=== PATIENT | male | born 1950 | race Caucasian/White ===

== ENCOUNTER → 2017-03-09 | Outpatient (CLI) | payer OTHER ==
[~2017-03-09] MED LIST: ACT30 PO; ASPI81TA28 PO; GLIM4TAB2 PO; GLIP-197 PO; METF500T5 PO; PRAV10TA39 PO; SULF-302 PO
[2017-03-09 13:15] LABS: HEMOGLOBIN A1C 7.1 % (4.5-5.6)
== END | disposition home or self-care (01) ==
LOC: C.LABPBG 09:58
PROVIDERS: ATTEND Physician Assistant
DX: E11.9 Type 2 diabetes mellitus without complications (principal)

== ENCOUNTER → 2017-06-09 | Outpatient (CLI) | payer OTHER ==
[2017-06-09 17:16] LABS: BLOOD UREA NITROGEN 21 mg/dl (7-18); CALCIUM 8.5 mg/dl (8.5-10.1); CARBON DIOXIDE 26 mmol/L (21-32); CREATININE 1.04 mg/dl (0.60-1.40); GLUCOSE 263 mg/dl (70-99); POTASSIUM 4.4 mmol/L (3.5-5.1); SODIUM 136 mmol/L (136-145)
[2017-06-09 17:25] LABS: CREATININE RANDOM URINE 57.1 mg/dl
[2017-06-10 06:56] LABS: HEMOGLOBIN A1C 8.1 % (4.5-5.6)
== END | disposition home or self-care (01) ==
LOC: C.LABPBG 11:50
PROVIDERS: ATTEND Physician Assistant
DX: E11.9 Type 2 diabetes mellitus without complications (principal)

== ENCOUNTER 2022-04-29 11:27 | Inpatient (IN) ==
--- NOTE | 2022-04-29 12:06 | Emergency Department Note ---
Impression & Plan Syncope ED Provider Note ED Provider Note NAME: KESHA DOE AGE:71 SEX: Male : 1950 ARRIVES VIA: EMS INFORMANT: Patient ED PROVIDER(s): Rachel Prieto DO CHIEF COMPLAINT: Syncope HPI: This is a 71-year-old male who states he was sitting in his car waiting in line to receive food from the [employer] bank working on a word puzzle and the next thing he knew he was in the back of an ambulance. Patient states he felt well in his usual state of health when he got up this morning. Denies any prodromal headaches, chest pain, abdominal pain, or dizziness. Patient states he felt well while seated in the car and felt well on arrival here via ambulance. Patient denies any recent illness, change in bowels or change in urine. He states he is taking his medications as prescribed. He denies any history of heart problems or prior episodes of syncope. He denies any recent sense of palpitations. PAST MEDICAL HISTORY:See Below PAST SURGICAL HISTORY:See Below FAMILY HISTORY:See Below SOCIAL HISTORY:See Below HOME MEDICATIONS:See Below ALLERGIES:See Below VITALS:See Below PHYSICAL EXAMINATION: GENERAL: alert, well appearing, well nourished, no distress, non-toxic EYE EXAM: normal conjunctiva, PERRL and EOM's grossly intact OROPHARYNX: no exudate, no erythema, lips, buccal mucosa, and tongue normal and mucous membranes are moist NECK: supple, no nuchal rigidity, no adenopathy, non-tender LUNGS: Clear to auscultation. Normal chest wall mechanics, no w/r/r HEART: no murmurs, S1 normal and S2 normal ABDOMEN: abdomen soft, non-tender, normo-active bowel sounds, no masses, no rebound or guarding. BACK: Back is symmetrical on inspection and there is no deformity, no midline tenderness, no CVA tenderness. SKIN: no rashes, petechiae, orbruising UPPER EXTREMITIES: upper extremities are grossly normal. FROM, nml pulses b/l. LOWER EXTREMITIES: No pitting edema. FROM, nml pulses b/l. NEURO EXAM: Normal sensorium, cranial nerves II-XII grossly intact, normal speech, no facial droop,nogross weakness of arms, no gross weakness of legs. Gross sensation intact bilaterally. No ataxia. Normal finger-nose, negative pronator drift. Vital Signs: reviewed and remarkable Differential Diagnosis: Differential diagnosis includes etiologies such as vasovagal event, infection, hypoglycemia, electrolyte abnormalities, cardiac sources, intracerebral event, toxicologic, neurologic, as well as others were entertained. MEDICAL DECISION MAKING: This is a 71-year-old male who presents following a syncopal event earlier this morning. Patient with no prodromal symptoms and no recollection of the event until he awoke in the ambulance. He was afebrile and vital signs were stable. Patient had a nonfocal neuro exam at bedside, and had no complaints of symptoms. IV established, labs drawn and sent, EKG performed interpreted by me at bedside, chest x-ray performed and interpreted by me at bedside, patient sent for CT imaging after being placed on telemetry. Patient did have a bowel movement here which was sent for culture as a precaution as upon additional questioning he admitted to intermittent diarrhea over the last 2 weeks. Patient had a soft and nontender abdominal exam at bedside. No ectopy or dysrhythmia noted on telemetry. Patient's labs reassuring with exception of hypomagnesemia. CT imaging reassuring. IV magnesium was added for repletion in addition to IV fluids. Given unclear etiology and severity of syncopal event today as well as patient's risk factors and lack of follow-up, case was discussed with hospitalist for additional evaluation and management. Patient states he does not routinely follow with cardiology and has not had any cardiac evaluation in several years. Leukocytosis was noted although I suspect this is stress demargination versus related to his intermittent diarrhea. Consultation(s): 1425: Case discussed with Dr. Ambrocio, [facility] hospitalist service. ER Treatment Provided: See below 1205: Nursing staff now reports upon arrival of family at the bedside, patient admits to having 2 weeks of intermittent diarrhea. Diagnostics Interpreted By Me: -ECG: Normal sinus at 93, normal axis, normal intervals, nonspecific ST/T wave changes, mildly apparent baseline -Cardiac Monitoring: An order was placed for continuous cardiac monitoring. The monitor shows a rate of 92 with normal sinus rhythm. -Laboratory studies: As stated above and show below. -Imaging studies: X-ray Chest: A single view study of the chest was reviewed and was negative for cardiomegaly, focal infiltrate, effusion, pulmonary edema, or wide mediastinum. Triage Nursing Note Reviewed Prior/Outside Records Reviewed -external records reviewed Procedures: [] Critical Care: [] Past Med/Surg History Medical History (Updated 04/29/22 @ 16:03 by Dania Ambrocio MD) CAD (coronary artery disease) Diabetes mellitus Diabetic peripheral neuropathy Hyperlipidemia Hypertension PAD (peripheral artery disease) Social History Smoking Status: Former smoker Tobacco Type: Cigarettes Second Hand Exposure: No; Do You Dip or Chew Tobacco: Yes; Tobacco Cessation Education Requested by Patient: No Hx Alcohol Use: No Hx Substance Use: No Preferred Language: [place]i Oleomargarine Maker Required: No Beliefs That Will Affect Care: None Current Living Situation: Family Other Information That Helps Us Care for You: No Feels Safe at Home: Yes Safety Concerns: Feels Safe At This Time Assistive Devices: None Allergies Allergies Allergy/AdvReac Type Severity Reaction Status Date / Time No Known Allergies Allergy Verified 04/29/22 14:36 Home Meds Home Medications Medication Instructions Recorded Confirmed mecobalamin (vitamin B12) 1,000 1,000 mcg sublingual DAILY 09/06/18 04/29/22 mcg disintegrating tablet,sublingual cholecalciferol (vitamin D3) 125 10,000 units PO DAILY #30 tabs 09/21/18 04/29/22 mcg (5,000 unit) tablet pravastatin 20 mg tablet 20 mg PO DAILY #90 tabs 09/21/18 04/29/22 metformin 500 mg tablet,extended 1,000 mg PO BID 03/19/19 04/29/22 release 24hr omega-3 acid ethyl esters 1 gram 1 cap PO BID 03/19/19 04/29/22 capsule aspirin 81 mg chewable tablet 81 mg PO DAILY 04/29/22 04/29/22 insulin lispro 100 unit/mL 18 unit subcut BID 04/29/22 04/29/22 subcutaneous pen (Humalog KwikPen (U-100) Insulin) insulin lispro 100 unit/mL 20 unit subcut QAM 04/29/22 04/29/22 subcutaneous pen (Humalog KwikPen (U-100) Insulin) lisinopril 20 1 tab PO DAILY 04/29/22 04/29/22 mg-hydrochlorothiazide 12.5 mg tablet vitamin E 268 mg (400 unit) capsule 268 mg PO DAILY 04/29/22 04/29/22 Previous Rx's Medication Instructions Recorded Matheus Shen U-300 Insulin 300 55 unit (0.1833 mL) subcut DAILY 11/16/21 unit/mL (1.5 mL) subcutaneous pen 90 days #18 mL (insulin glargine U-300 conc) semaglutide 2 mg/dose (8 mg/3 mL) 2 mg (0.75 mL) subcut WK 30 days 11/30/21 subcutaneous pen injector #3 mL Results & Data (ED) Vital Signs Vital Signs - 24 hr 04/29/22 11:35 04/29/22 11:35 04/29/22 12:25 Temperature 36.5 C Temperature Source Oral Pulse Rate 95 H Pulse Rate from SpO2 Sensor Respiratory Rate 15 15 Blood Pressure 124/56 L Blood Pressure Mean 78 Pulse Oximetry 95 95 Oxygen Delivery Method Room Air Room Air Sepsis Recent Fever Within 48 Hours No Sepsis New/Unexplained Change in Mental Status N/A Sepsis Action Taken by Nursing No Action Required 04/29/22 11:37 04/29/22 11:38 04/29/22 11:38 Temperature Temperature Source Pulse Rate 95 H 124 H Pulse Rate from SpO2 Sensor Respiratory Rate 15 16 Blood Pressure 111/60 Blood Pressure Mean 77 Pulse Oximetry Oxygen Delivery Method Sepsis Recent Fever Within 48 Hours Sepsis New/Unexplained Change in Mental Status Sepsis Action Taken by Nursing 04/29/22 11:39 04/29/22 11:39 04/29/22 11:55 Temperature Temperature Source Pulse Rate 93 H 118 H Pulse Rate from SpO2 Sensor Respiratory Rate 14 17 Blood Pressure 124/56 L Blood Pressure Mean 78 Pulse Oximetry Oxygen Delivery Method Sepsis Recent Fever Within 48 Hours Sepsis New/Unexplained Change in Mental Status Sepsis Action Taken by Nursing 04/29/22 12:00 04/29/22 12:23 04/29/22 12:24 Temperature Temperature Source Pulse Rate 100 H 94 H 96 H Pulse Rate from SpO2 Sensor 102 H Respiratory Rate 15 16 15 Blood Pressure Blood Pressure Mean Pulse Oximetry 98 Oxygen Delivery Method Sepsis Recent Fever Within 48 Hours Sepsis New/Unexplained Change in Mental Status Sepsis Action Taken by Nursing 04/29/22 12:24 04/29/22 12:30 04/29/22 12:30 Temperature Temperature Source Pulse Rate 94 H Pulse Rate from SpO2 Sensor Respiratory Rate 16 Blood Pressure 107/59 L 100/61 Blood Pressure Mean 75 74 Pulse Oximetry Oxygen Delivery Method Sepsis Recent Fever Within 48 Hours Sepsis New/Unexplained Change in Mental Status Sepsis Action Taken by Nursing 04/29/22 12:54 04/29/22 13:00 04/29/22 13:00 Temperature Temperature Source Pulse Rate 109 H 100 H Pulse Rate from SpO2 Sensor 120 H 94 H Respiratory Rate 15 16 Blood Pressure 125/43 L Blood Pressure Mean 70 Pulse Oximetry 97 94 Oxygen Delivery Method Sepsis Recent Fever Within 48 Hours Sepsis New/Unexplained Change in Mental Status Sepsis Action Taken by Nursing Laboratory Data 04/29/22 11:37 04/29/22 11:37 Lab Results 04/29/22 04/29/22 04/29/22 Range/Units 11:37 11:37 11:37 WBC 17.10 H (4.8-10.8) K/ul RBC 4.69 L (4.70-6.10) M/uL Hgb 14.9 (14.0-18.0) g/dl Hct 42.7 (42.0-52.0) % MCV 91.0 (80.0-100.0) fL MCH 31.8 (25.0-34.0) pg MCHC 34.9 (32.0-36.0) g/dL RDW Std Deviation 43.8 (36.4-46.3) fL RDW Coeff of Mikayla 13.2 (11.5-14.5) % Plt Count 284 (130-400) K/uL MPV 11.2 (9.4-12.4) fL Immature Gran % (Auto) 1.0 % Neut % (Auto) 75.1 % Lymph % (Auto) 11.2 % [place] % (Auto) 5.2 % Eos % (Auto) 7.1 % Baso % (Auto) 0.4 % Neut # (Auto) 12.85 H (1.40-6.50) K/uL Lymph # (Auto) 1.92 (1.2-3.4) K/uL [place] # (Auto) 0.89 H (0.11-0.59) K/uL Eos # (Auto) 1.21 H (0-0.50) K/uL Baso # (Auto) 0.06 (0-0.2) K/uL Immature Gran # (Auto) 0.17 (0.01-0.20) K/uL Sodium 139 (136-145) mmol/L Potassium 4.1 (3.5-5.1) mmol/L Chloride 106 (98-107) mmol/L Carbon Dioxide 21 (21-32) mmol/L Anion Gap 12 H (3-11) BUN 25 H (6-23) mg/dl Creatinine 1.12 (0.6-1.4) mg/dl Est Cr Clr Drug Dosing Not Reportable Est GFR ( Amer) 76.7 ml/min Est GFR (Non-Af Amer) 66.2 ml/min BUN/Creatinine Ratio 22.3 H (10-20) Glucose 71 (70-99(Fasting)) mg/dl Calcium 8.8 (8.5-10.1) mg/dl Magnesium 1.4 L (1.7-2.4) mg/dl Total Bilirubin 0.3 (0.2-1.0) mg/dl AST 15 (13-39) U/L ALT 12 (7-52) U/L Alkaline Phosphatase 36 (34-104) U/L Troponin I High Sens 21.4 H (0-20) pg/ml Total Protein 6.1 (6.0-8.3) gm/dl Albumin 3.4 (3.4-5.0) gm/dl Globulin 2.7 (2.5-4.0) gm/dl Albumin/Globulin Ratio 1.3 (0.9-2) TSH 4.503 H (0.300-4.500) uIu/ml Free T4 0.98 (0.61-1.60) ng/dl Urine Color Urine Appearance (Clear) Urine pH (4.5-7.5) Ur Specific [place] (1.000-1.030) Urine Protein (Negative) Urine Glucose (UA) (Negative) Urine Ketones (Negative) Urine Blood (Negative) Urine Nitrite (Negative) Urine Bilirubin (Negative) Urine Urobilinogen (Negative) Ur Leukocyte Esterase (Negative) Stl C. cayetanensis PCR (NotDetected) Stool Rotavirus A PCR (NotDetected) Stl Adenov F 40/41 PCR (NotDetected) Stool Astrovirus (PCR) (NotDetected) Stool Campylobacter PCR (NotDetected) Stool Cryptosporidium PCR (NotDetected) Stl E.coli Shiga Tox PCR (NotDetected) Stl Enterotoxigenic E PCR (NotDetected) Stool EPEC (PCR) (NotDetected) Stool EAEC (PCR) (NotDetected) Stl E. histolytica PCR (NotDetected) Stool Giardia Lamblia PCR (NotDetected) Stool Salmonella PCR (NotDetected) Stool Sapovirus (PCR) (NotDetected) Stl P. shigelloides PCR (NotDetected) Stl Shigella/EIEC PCR (NotDetected) St Y.enterocolitica PCR (NotDetected) Stool Vibrio (PCR) (NotDetected) Stl Vibrio cholerae PCR (NotDetected) Stl Norovirus GI/GII PCR (NotDetected) Urine Opiates Screen (Neg) Ur Methadone, Qual (Neg) Urine Barbiturates (Neg) Ur Phencyclidine (PCP) (Neg) U Amphetamin/Meth Scrn (Neg) MDMA (Ecstasy) Screen (Neg) U Benzodiazepines Scrn (Neg) Ur Cocaine Metabolite (Neg) U Marijuana (THC) Screen (Neg) SARS-CoV-2 (PCR) (Negative) Influenza Type A (PCR) (Neg) Influenza Type B (PCR) (Neg) RSV (RT-PCR) (Neg) 04/29/22 04/29/22 04/29/22 Range/Units 12:00 12:00 12:05 WBC (4.8-10.8) K/ul RBC (4.70-6.10) M/uL Hgb (14.0-18.0) g/dl Hct (42.0-52.0) % MCV (80.0-100.0) fL MCH (25.0-34.0) pg MCHC (32.0-36.0) g/dL RDW Std Deviation (36.4-46.3) fL RDW Coeff of Mikayla (11.5-14.5) % Plt Count (130-400) K/uL MPV (9.4-12.4) fL Immature Gran % (Auto) % Neut % (Auto) % Lymph % (Auto) % [place] % (Auto) % Eos % (Auto) % Baso % (Auto) % Neut # (Auto) (1.40-6.50) K/uL Lymph # (Auto) (1.2-3.4) K/uL [place] # (Auto) (0.11-0.59) K/uL Eos # (Auto) (0-0.50) K/uL Baso # (Auto) (0-0.2) K/uL Immature Gran # (Auto) (0.01-0.20) K/uL Sodium (136-145) mmol/L Potassium (3.5-5.1) mmol/L Chloride (98-107) mmol/L Carbon Dioxide (21-32) mmol/L Anion Gap (3-11) BUN (6-23) mg/dl Creatinine (0.6-1.4) mg/dl Est Cr Clr Drug Dosing Est GFR ( Amer) ml/min Est GFR (Non-Af Amer) ml/min BUN/Creatinine Ratio (10-20) Glucose (70-99(Fasting)) mg/dl Calcium (8.5-10.1) mg/dl Magnesium (1.7-2.4) mg/dl Total Bilirubin (0.2-1.0) mg/dl AST (13-39) U/L ALT (7-52) U/L Alkaline Phosphatase (34-104) U/L Troponin I High Sens (0-20) pg/ml Total Protein (6.0-8.3) gm/dl Albumin (3.4-5.0) gm/dl Globulin (2.5-4.0) gm/dl Albumin/Globulin Ratio (0.9-2) TSH (0.300-4.500) uIu/ml Free T4 (0.61-1.60) ng/dl Urine Color Yellow Urine Appearance Clear (Clear) Urine pH 5.0 (4.5-7.5) Ur Specific [place] 1.020 (1.000-1.030) Urine Protein Negative (Negative) Urine Glucose (UA) Negative (Negative) Urine Ketones Negative (Negative) Urine Blood Negative (Negative) Urine Nitrite Negative (Negative) Urine Bilirubin Negative (Negative) Urine Urobilinogen Negative (Negative) Ur Leukocyte Esterase Negative (Negative) Stl C. cayetanensis PCR Not Detected (NotDetected) Stool Rotavirus A PCR Not Detected (NotDetected) Stl Adenov F 40/41 PCR Not Detected (NotDetected) Stool Astrovirus (PCR) Not Detected (NotDetected) Stool Campylobacter PCR Not Detected (NotDetected) Stool Cryptosporidium PCR Not Detected (NotDetected) Stl E.coli Shiga Tox PCR Not Detected (NotDetected) Stl Enterotoxigenic E PCR Not Detected (NotDetected) Stool EPEC (PCR) Not Detected (NotDetected) Stool EAEC (PCR) Not Detected (NotDetected) Stl E. histolytica PCR Not Detected (NotDetected) Stool Giardia Lamblia PCR Not Detected (NotDetected) Stool Salmonella PCR Not Detected (NotDetected) Stool Sapovirus (PCR) Not Detected (NotDetected) Stl P. shigelloides PCR Not Detected (NotDetected) Stl Shigella/EIEC PCR Not Detected (NotDetected) St Y.enterocolitica PCR Not Detected (NotDetected) Stool Vibrio (PCR) Not Detected (NotDetected) Stl Vibrio cholerae PCR Not Detected (NotDetected) Stl Norovirus GI/GII PCR Not Detected (NotDetected) Urine Opiates Screen Neg (Neg) Ur Methadone, Qual Neg (Neg) Urine Barbiturates Neg (Neg) Ur Phencyclidine (PCP) Neg (Neg) U Amphetamin/Meth Scrn Neg (Neg) MDMA (Ecstasy) Screen Neg (Neg) U Benzodiazepines Scrn Neg (Neg) Ur Cocaine Metabolite Neg (Neg) U Marijuana (THC) Screen Neg (Neg) SARS-CoV-2 (PCR) (Negative) Influenza Type A (PCR) (Neg) Influenza Type B (PCR) (Neg) RSV (RT-PCR) (Neg) 04/29/22 Range/Units 14:27 WBC (4.8-10.8) K/ul RBC (4.70-6.10) M/uL Hgb (14.0-18.0) g/dl Hct (42.0-52.0) % MCV (80.0-100.0) fL MCH (25.0-34.0) pg MCHC (32.0-36.0) g/dL RDW Std Deviation (36.4-46.3) fL RDW Coeff of Mikayla (11.5-14.5) % Plt Count (130-400) K/uL MPV (9.4-12.4) fL Immature Gran % (Auto) % Neut % (Auto) % Lymph % (Auto) % [place] % (Auto) % Eos % (Auto) % Baso % (Auto) % Neut # (Auto) (1.40-6.50) K/uL Lymph # (Auto) (1.2-3.4) K/uL [place] # (Auto) (0.11-0.59) K/uL Eos # (Auto) (0-0.50) K/uL Baso # (Auto) (0-0.2) K/uL Immature Gran # (Auto) (0.01-0.20) K/uL Sodium (136-145) mmol/L Potassium (3.5-5.1) mmol/L Chloride (98-107) mmol/L Carbon Dioxide (21-32) mmol/L Anion Gap (3-11) BUN (6-23) mg/dl Creatinine (0.6-1.4) mg/dl Est Cr Clr Drug Dosing Est GFR ( Amer) ml/min Est GFR (Non-Af Amer) ml/min BUN/Creatinine Ratio (10-20) Glucose (70-99(Fasting)) mg/dl Calcium (8.5-10.1) mg/dl Magnesium (1.7-2.4) mg/dl Total Bilirubin (0.2-1.0) mg/dl AST (13-39) U/L ALT (7-52) U/L Alkaline Phosphatase (34-104) U/L Troponin I High Sens (0-20) pg/ml Total Protein (6.0-8.3) gm/dl Albumin (3.4-5.0) gm/dl Globulin (2.5-4.0) gm/dl Albumin/Globulin Ratio (0.9-2) TSH (0.300-4.500) uIu/ml Free T4 (0.61-1.60) ng/dl Urine Color Urine Appearance (Clear) Urine pH (4.5-7.5) Ur Specific [place] (1.000-1.030) Urine Protein (Negative) Urine Glucose (UA) (Negative) Urine Ketones (Negative) Urine Blood (Negative) Urine Nitrite (Negative) Urine Bilirubin (Negative) Urine Urobilinogen (Negative) Ur Leukocyte Esterase (Negative) Stl C. cayetanensis PCR (NotDetected) Stool Rotavirus A PCR (NotDetected) Stl Adenov F 40/41 PCR (NotDetected) Stool Astrovirus (PCR) (NotDetected) Stool Campylobacter PCR (NotDetected) Stool Cryptosporidium PCR (NotDetected) Stl E.coli Shiga Tox PCR (NotDetected) Stl Enterotoxigenic E PCR (NotDetected) Stool EPEC (PCR) (NotDetected) Stool EAEC (PCR) (NotDetected) Stl E. histolytica PCR (NotDetected) Stool Giardia Lamblia PCR (NotDetected) Stool Salmonella PCR (NotDetected) Stool Sapovirus (PCR) (NotDetected) Stl P. shigelloides PCR (NotDetected) Stl Shigella/EIEC PCR (NotDetected) St Y.enterocolitica PCR (NotDetected) Stool Vibrio (PCR) (NotDetected) Stl Vibrio cholerae PCR (NotDetected) Stl Norovirus GI/GII PCR (NotDetected) Urine Opiates Screen (Neg) Ur Methadone, Qual (Neg) Urine Barbiturates (Neg) Ur Phencyclidine (PCP) (Neg) U Amphetamin/Meth Scrn (Neg) MDMA (Ecstasy) Screen (Neg) U Benzodiazepines Scrn (Neg) Ur Cocaine Metabolite (Neg) U Marijuana (THC) Screen (Neg) SARS-CoV-2 (PCR) NEGATIVE (Negative) Influenza Type A (PCR) Negative (Neg) Influenza Type B (PCR) Negative (Neg) RSV (RT-PCR) Negative (Neg) Administered Medications Sodium Chloride (Nss 1000ml) 1,000 mls @ 125 mls/hr IV .Q8H JESSENIA Stop: 05/29/22 11:59 Last Admin: 04/29/22 18:20 Dose: 125 mls/hr Documented By: Infusion: 04/29/22 18:20 Dose: 125 mls/hr Documented By: Admin: 04/29/22 12:09 Dose: 125 mls/hr Documented By: PAIGE Insulin Aspart (Insulin Aspart Per Unit) 0 units SC ACHS JESSENIA Stop: 05/29/22 16:47 Last Admin: 04/29/22 18:19 Dose: 7 units Documented By: KALEE Co-signed By: LEO Miscellaneous (Carbohydrates For Hypoglycemia ) 15 - 30 gm PO UD PRN PRN Reason: Hypoglycemia Protocol Stop: 05/29/22 16:47 Last Admin: 04/29/22 16:52 Dose: 15 gm Documented By: KALEE Discontinued Medications Magnesium Sulfate/Dextrose (Magnesium Sulfate / D5w) 1 gm in 100 mls @ 100 mls/hr IV Q1H JESSENIA Stop: 04/29/22 14:51 Last Infusion: 04/29/22 15:59 Dose: 0 mls/hr Documented By: Admin: 04/29/22 14:38 Dose: 100 mls/hr Documented By: Infusion: 04/29/22 13:59 Dose: 0 mls/hr Documented By: Admin: 04/29/22 12:57 Dose: 100 mls/hr Documented By: PAIGE Ioversol (Optiray 320 500ml) 112 ml IV ONCE ONE Stop: 04/29/22 12:57 Last Admin: 04/29/22 12:57 Dose: 112 ml Documented By: LINDA Imaging Data Radiologist's Impression: Chest X-Ray 04/29/22 11:42 XR chest 1V portable CLINICAL HISTORY: Syncope. COMPARISON STUDY: No previous studies for comparison. FINDINGS: There are several old healed left rib fractures. Lung volumes are normal. Lungs are clear. There is no pneumothorax or pleural effusion. Mild cardiomegaly. Mediastinal contours are normal. There is no evidence for pulmonary edema. IMPRESSION: No acute cardiopulmonary findings. ACT 112: Negative or not required by law. Electronically signed by: Tai Schmid M.D. 04/29/2022 1:[address] 04/29/22 12:00 HEAD CTA HISTORY: syncope TECHNIQUE: Multiaxial CT images of the head were performed both before and after the intravenous administration of contrast to evaluate the major cerebral vessels. Maximum intensity projection images were also obtained. A dose lowering technique was utilized adhering to the principles of ALARA. COMPARISON: None. FINDINGS: There is no mass, hematoma, midline shift, or acute infarct. Visualized intracranial internal carotid arteries, distal right vertebral artery, and basilar artery are widely patent. There is no significant stenosis, occlusion, or aneurysm seen within the bilateral ACAs, MCAs, or supervisory historian. The major dural venous sinuses are patent. The distal left vertebral artery is not well visualized and may be severely hypoplastic. IMPRESSION: 1. No acute intracranial abnormality. 2. No significant stenosis, occlusion, or aneurysm within the [place]. 3. The distal left vertebral artery is not well visualized and may be severely hypoplastic. ACT 112: Negative or not required by law. Electronically signed by: Cayden Marks M.D. 04/29/2022 1:19 PM Head CTA 04/29/22 12:00 HEAD CTA HISTORY: syncope TECHNIQUE: Multiaxial CT images of the head were performed both before and after the intravenous administration of contrast to evaluate the major cerebral vessels. Maximum intensity projection images were also obtained. A dose lowering technique was utilized adhering to the principles of ALARA. COMPARISON: None. FINDINGS: There is no mass, hematoma, midline shift, or acute infarct. Visualized intracranial internal carotid arteries, distal right vertebral artery, and basilar artery are widely patent. There is no significant stenosis, occlusion, or aneurysm seen within the bilateral ACAs, MCAs, or supervisory historian. The major dural venous sinuses are patent. The distal left vertebral artery is not well visualized and may be severely hypoplastic. IMPRESSION: 1. No acute intracranial abnormality. 2. No significant stenosis, occlusion, or aneurysm within the [place]. 3. The distal left vertebral artery is not well visualized and may be severely hypoplastic. ACT 112: Negative or not required by law. Electronically signed by: Cayden Marks M.D. 04/29/2022 1:19 PM Neck CTA 04/29/22 12:00 CT angio neck with con CLINICAL HISTORY: 71 years-old Male with syncope. Acute syncope COMPARISON STUDY: CTA had of same day TECHNIQUE: Following the IV administration of 112 cc of Optiray, CT angiogram of the neck was performed from the aortic arch to the skull base. Images are reviewed in the axial, sagittal, and coronal planes. 3-D MIPS images are created and assessed. IV contrast was administered without complication. All measurements were calculated based on NASCET criteria. A dose lowering technique was utilized adhering to the principles of ALARA. FINDINGS: Three-vessel morphology of the thoracic aortic arch. Patency of the innominate and imaged subclavian arteries. Common carotid arteries are patent. Mild atherosclerotic plaque of the left carotid bulb and proximal cervical segment left ICA without significant stenosis. The internal carotid arteries are patent. Moderate atherosclerotic plaque within the proximal V1 segment of the right vertebral artery results in less than 50% stenosis. The remainder of the right vertebral artery is widely patent. Developmentally diminutive left vertebral artery originates directly from the aortic arch. There is a focal area of a least 50% stenosis involving the A1 segment left vertebral artery on image 135 series 6. The left vertebral artery terminates within the PICA. origin of the right posterior cerebral artery. Lung apices are clear. Unremarkable soft tissues. Degenerative changes of the cervical spine. Advanced odontogenic disease with periapical cysts and dental caries. IMPRESSION: 1. Atherosclerotic vascular disease without aneurysm, dissection, high-grade stenosis or arterial occlusion. 2. Developmentally diminutive left vertebral artery terminates within the left PICA. ACT 112: Negative or not required by law. The above report was generated using voice recognition software. It may contain grammatical, syntax or spelling errors. Electronically signed by: Dayron Cabrera M.D. 04/29/2022 1:31 PM Discharge Plan Visit Data Chief Complaint: Syncope Stated Complaint: SYNCOPE ED Provider: Rachel Prieto Discharge Problem: Syncope Patient Disposition: Admitted As Inpatient Discharge Instructions Interventions: ED Discharge Assessment Last Done: 04/29/22 16:17
[2022-04-29] MEDS: SODIUM CHLORIDE 0.9% 1000ML 1,000 ML IV SCH ×2 (12:09→18:20)
[2022-04-29 12:16] LABS: Basophils # (auto) 0.06 K/uL (0-0.2); Basophils % (auto) 0.4 %; Eosinophils # (auto) 1.21 K/uL (0-0.50); Eosinophils % (auto) 7.1 %; Hematocrit (blood only) 42.7 % (42.0-52.0); Hemoglobin 14.9 g/dl (14.0-18.0); Immature Granulocytes # (auto) 0.17 K/uL (0.01-0.20); Lymphocytes # (auto) 1.92 K/uL (1.2-3.4); Lymphocytes % (auto) 11.2 %; Mean Corpuscular Hemoglobin 31.8 pg (25.0-34.0); Mean Corpuscular Hgb Conc 34.9 g/dL (32.0-36.0); Mean Platelet Volume 11.2 fL (9.4-12.4); Monocytes # (auto) 0.89 K/uL (0.11-0.59); Monocytes % (auto) 5.2 %; Neutrophils # (auto) 12.85 K/uL (1.40-6.50); Neutrophils % (auto) 75.1 %; Platelet Count 284 K/uL (130-400); RDW Coefficient of Variation 13.2 % (11.5-14.5); RDW Standard Deviation 43.8 fL (36.4-46.3); Red Blood Count 4.69 M/uL (4.70-6.10)
[2022-04-29 12:22] LABS: Appearance Urine Clear (Clear); Bilirubin Urine Negative (Negative); Blood Urine Negative (Negative); Color Urine Yellow; Glucose Urine UA Negative (Negative); Ketones Urine Negative (Negative); Leukocyte Esterase Urine Negative (Negative); Nitrite Urine Negative (Negative); Protein Urine Negative (Negative); Urobilinogen Urine Negative (Negative)
[2022-04-29 12:35] LABS: Alanine Aminotransferase 12 U/L (7-52); Albumin Globulin Ratio 1.3 (0.9-2); Albumin Level 3.4 gm/dl (3.4-5.0); Alkaline Phosphatase 36 U/L (34-104); Anion Gap 12 (3-11); Aspartate Aminotransferase 15 U/L (13-39); BUN Creatinine Ratio 22.3 (10-20); Bilirubin,Total 0.3 mg/dl (0.2-1.0); Blood Urea Nitrogen 25 mg/dl (6-23); Calcium 8.8 mg/dl (8.5-10.1); Carbon Dioxide 21 mmol/L (21-32); Chloride 106 mmol/L (98-107); Est GFR (African American) 76.7 ml/min; Est GFR (Non-African American) 66.2 ml/min; Globulin 2.7 gm/dl (2.5-4.0); Glucose 71 mg/dl (70-99(Fasting)); Magnesium 1.4 mg/dl (1.7-2.4); Potassium 4.1 mmol/L (3.5-5.1); Sodium 139 mmol/L (136-145); Total Protein 6.1 gm/dl (6.0-8.3)
[2022-04-29 12:39] LABS: Troponin I High Sensitivity 21.4 pg/ml (0-20)
[2022-04-29 12:48] LABS: Thyroid Stimulating Hormone 4.503 uIu/ml (0.300-4.500)
[2022-04-29] MEDS ORDERED: OPTIRAY 320 500ml IV ONE (12:56)
[2022-04-29] MEDS: MAGNESIUM SULFATE / D5W 1 GM/100 ML BAG IV SCH ×2 (12:57→14:38)
--- NOTE | 2022-04-29 13:20 | CT Scan Report ---
HEAD CTA HISTORY: syncope TECHNIQUE: Multiaxial CT images of the head were performed both before and after the intravenous admi nistration of contrast to evaluate the major cerebral vessels. Maximum intensity projection images we re also obtained. A dose lowering technique was utilized adhering to the principles of ALARA. COMPARISON: None. FINDINGS: There is no mass, hematoma, midline shift, or acute infarct. Visualized intracranial chemistry intern al carotid arteries, distal right vertebral artery, and basilar artery are widely patent. There is no significant stenosis, occlusion, or aneurysm seen within the bilateral ACAs, MCAs, or parts counter representative. The erin r dural venous sinuses are patent. The distal left vertebral artery is not well visualized and may be severely hypoplastic. IMPRESSION: 1. No acute intracranial abnormality. 2. No significant stenosis, occlusion, or aneurysm within the [place] of [place]. 3. The distal left vertebral artery is not well visualized and may be severely hypoplastic. ACT 112: Negative or not required by law. Electronically signed by: Cayden Marks M.D. 04/29/2022 1:19 PM
--- NOTE | 2022-04-29 13:20 | CT Scan Report ---
HEAD CTA HISTORY: syncope TECHNIQUE: Multiaxial CT images of the head were performed both before and after the intravenous admi nistration of contrast to evaluate the major cerebral vessels. Maximum intensity projection images we re also obtained. A dose lowering technique was utilized adhering to the principles of ALARA. COMPARISON: None. FINDINGS: There is no mass, hematoma, midline shift, or acute infarct. Visualized intracranial culinary intern al carotid arteries, distal right vertebral artery, and basilar artery are widely patent. 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 The erin r dural venous sinuses are patent. The distal left vertebral artery is not well visualized and may be severely hypoplastic. IMPRESSION: 1. No acute intracranial abnormality. 2. No significant stenosis, occlusion, or aneurysm within the [place]. 3. The distal left vertebral artery is not well visualized and may be severely hypoplastic. ACT 112: Negative or not required by law. Electronically signed by: Cayden Marks M.D. 04/29/2022 1:19 PM
--- NOTE | 2022-04-29 13:21 | XRay Report ---
XR chest 1V portable CLINICAL HISTORY: Syncope. COMPARISON STUDY: No previous studies for comparison. FINDINGS: There are several old healed left rib fractures. Lung volumes are normal. Lungs are clear. There is no pneumothorax or pleural effusion. Mild cardiomegaly. Mediastinal contours are normal. The re is no evidence for pulmonary edema. IMPRESSION: No acute cardiopulmonary findings. ACT 112: Negative or not required by law. Electronically signed by: Tai Schmid M.D. 04/29/2022 1:20 PM
[2022-04-29 13:23] LABS: T4 Free Thyroxine 0.98 ng/dl (0.61-1.60)
--- NOTE | 2022-04-29 13:32 | CT Scan Report ---
CT angio neck with con CLINICAL HISTORY: 71 years-old Male with syncope. Acute syncope COMPARISON STUDY: CTA had of same day TECHNIQUE: Following the IV administration of 112 cc of Optiray, CT angiogram of the neck was perform ed from the aortic arch to the skull base. Images are reviewed in the axial, sagittal, and coronal pl anes. 3-D MIPS images are created and assessed. IV contrast was administered without complication. Al l measurements were calculated based on NASCET criteria. A dose lowering technique was utilized adhe ring to the principles of ALARA. FINDINGS: Three-vessel morphology of the thoracic aortic arch. Patency of the innominate and imaged s ubclavian arteries. Common carotid arteries are patent. Mild atherosclerotic plaque of the left carot id bulb and proximal cervical segment left ICA without significant stenosis. The internal carotid art eries are patent. Moderate atherosclerotic plaque within the proximal V1 segment of the right vertebr al artery results in less than 50% stenosis. The remainder of the right vertebral artery is widely pa tent. Developmentally diminutive left vertebral artery originates directly from the aortic arch. Ther e is a focal area of a least 50% stenosis involving the A1 segment left vertebral artery on image 135 series 6. The left vertebral artery terminates within the PICA. origin of the right posterior cerebral artery. Lung apices are clear. Unremarkable soft tissues. Degenerative changes of the cervical spine. Advance d odontogenic disease with periapical cysts and dental caries. IMPRESSION: 1. Atherosclerotic vascular disease without aneurysm, dissection, high-grade stenosis or arterial occ lusion. 2. Developmentally diminutive left vertebral artery terminates within the left PICA. ACT 112: Negative or not required by law. The above report was generated using voice recognition software. It may contain grammatical, syntax o r spelling errors. Electronically signed by: Dayron Cabrera M.D. 04/29/2022 1:31 PM
[2022-04-29 13:35] LABS: Adenovirus F 40/41 PCR Not Detected (NotDetected); Astrovirus PCR Not Detected (NotDetected); Campylobacter PCR Not Detected (NotDetected); Cryptosporidium PCR Not Detected (NotDetected); Cyclospora cayetanensis PCR Not Detected (NotDetected); Entamoeba histolytica PCR Not Detected (NotDetected); Enteroaggregative E.coli(EAEC) Not Detected (NotDetected); Enteropathogenic E.coli (EPEC) Not Detected (NotDetected); Enterotoxigenic E.coli (ETEC) Not Detected (NotDetected); Giardia lamblia PCR Not Detected (NotDetected); Norovirus GI/GII PCR Not Detected (NotDetected); Plesiomonas shigelloides PCR Not Detected (NotDetected); Rotavirus A PCR Not Detected (NotDetected); Salmonella PCR Not Detected (NotDetected); Sapovirus PCR Not Detected (NotDetected); Shiga-like Toxin E.coli (STEC) Not Detected (NotDetected); Shigella/Enteroinvasive E.coli Not Detected (NotDetected); Vibrio cholerae PCR Not Detected (NotDetected); Vibrio species PCR Not Detected (NotDetected); Yersinia enterocolitica PCR Not Detected (NotDetected)
--- NOTE | 2022-04-29 15:46 | History & Physical Report ---
Date of Service April 29, 2022 Assessment & Plan (1) Syncope: Plan: Patient presents with mostly unwitnessed syncope for a prolonged amount of time approximately 10 minutes No definite seizure activity noted and it does not seem that he had a postictal. Afterwards and that he remembers waking up in the back of the ambulance and was not noted to be confused. Glucose was normal at the time, vital signs were normal, he had a pulse and was breathing on his own as per EMS Differential includes ventricular arrhythmia, myocardial infarction, seizure, or vasovagal syncope given the urge to defecate just prior to the episode. Magnesium mildly low but would not likely cause syncope Doubt PE as he has no evidence of DVT on examination, denies any chest pains, is not tachycardic or hypoxic. Blood pressures are normal. CT head and CT angiogram head and neck without evidence of stroke or large vessel occlusion or significant stenosis. He has no focal neurological deficits or signs of stroke. Troponin mildly elevated on arrival at 21. No chest pains but is a long standing diabetic and could have a silent IA. No murmur on examination Leukocytosis likely secondary to stress response from syncopal episode. No fevers or other signs of infection. -Admit to PCU for telemetry monitoring for arrhythmia-would consider loop recorder implantation or at a minimum have a 30-day cardiac event monitor -Trend serial troponin -Check echocardiogram -Check [id number] likely to have been a seizure but will consult neurology for their opinion -Consult cardiology-if troponin trends upward, may need cardiac catheterization. Also consider loop recorder implantation -Hold home lisinopril/HCTZ -Check urine drug screen -Follow CBC, CMP, magnesium in the morning (2) Diarrhea: Plan: With intermittent diarrhea over the last 2 weeks-has 3-4 episodes of nonbloody diarrhea every few days Did have a small drop of blood into the toilet with a bowel movement today but otherwise no bleeding, no melena No abdominal pains. No recent antibiotic use Stool PCR here is negative No changes in medications Monitor (3) Hypomagnesemia: Plan: Magnesium noted to be 1.4 on arrival. Likely secondary to HCTZ use as well as recent intermittent diarrhea and GI losses Was given 2 g of IV magnesium sulfate in the ER Follow magnesium level in the morning (4) Hypertension: Plan: Blood pressures are controlled Holding home lisinopril/HCTZ in case hypotension contributed to his syncope HCTZ also likely causing hypomagnesemia Follow blood pressures (5) Diabetes mellitus: Plan: Glucose is controlled, most recent hemoglobin A1c 6.9% Continue basal and bolus insulin Hold home Ozempic and metformin Glucose checks and diabetic diet (6) Hyperlipidemia: Plan: Continue pravastatin (7) Diabetic peripheral neuropathy: Plan: Follows with endocrinology (8) Vitamin D deficiency: Plan: Continue home vitamin D supplementation Most recent vitamin D level was normal (9) Vitamin B12 deficiency: Plan: Continue home B12 supplement Plan DVT prophylaxis-Lovenox SQ, SCDs Disposition-admit to PCU DNR/DNI as per discussion with patient with his at the bedside History of Present Illness Chief Complaint: Syncope Primary Care Provider: KENYETTA Adame This patient is a 71-year-old male with a history of DM2, obesity, diabetic peripheral neuropathy, HTN, and hyperlipidemia who presents to the ER after passing out in his car for a prolonged length of time. The patient reports he has been feeling like his normal self and was in his car in a parked position waiting in line at the [employer] today, doing a word puzzle. He reports he has been having some intermittent diarrhea the last 2 weeks and did feel an urge to defecate just prior to passing out. He otherwise denies any lightheadedness, heart palpitations, chest pains, shortness of breath, nausea/vomiting, headache or visual changes, weakness or numbness other than his chronic intermittent hand and foot numbness from neuropathy. He reports the next thing he remembers is waking up in the back of an ambulance. The length of time estimated that he was passed out was at least 10 minutes as per witnesses at the scene that called EMS. As per my discussion with the ER physician, EMS reports his glucose was normal, his vital signs were normal and he had a pulse and was breathing on his own when they found him unresponsive. There was no definite witnessed seizure activity. He denies any previous history of syncope or seizures. He denies any prior history of CAD or PAD despite these being listed as diagnoses in his chart. He has never had any cardiac issues that he is aware of. He reports he used to be quite physically active playing softball and other sports but has not in many years. However, he can easily go up and down a flight of stairs without any chest pains or shortness of breath. He denies any recent fevers or chills, cough or cold symptoms. He has chronic left leg swelling but it is no worse than usual. No recent weight gain or loss. No abdominal pains. He denies any recent changes in his medications or new ji pplements. In the ER, he had a nonfocal neurologic exam, his ECG was fairly normal, his initial troponin was mildly elevated at 21, he had a leukocytosis of 17, BUN mildly elevated at 25, and magnesium was low at 1.4. His vital signs were normal. He will be admitted for work-up for syncope. Allergies Allergy/AdvReac Type Severity Reaction Status Date / Time No Known Allergies Allergy Verified 04/29/22 14:36 Home Medications Medication Instructions Recorded Confirmed Type mecobalamin (vitamin B12) 1,000 1,000 mcg sublingual DAILY 09/06/18 04/29/22 History mcg disintegrating tablet,sublingual cholecalciferol (vitamin D3) 125 10,000 units PO DAILY #30 tabs 09/21/18 04/29/22 History mcg (5,000 unit) tablet pravastatin 20 mg tablet 20 mg PO DAILY #90 tabs 09/21/18 04/29/22 History metformin 500 mg tablet,extended 1,000 mg PO BID 03/19/19 04/29/22 History release 24hr omega-3 acid ethyl esters 1 gram 1 cap PO BID 03/19/19 04/29/22 History capsule Toujeo SoloStar U-300 Insulin 300 55 unit (0.1833 mL) subcut DAILY 11/16/21 04/29/22 Rx unit/mL (1.5 mL) subcutaneous pen 90 days #18 mL (insulin glargine U-300 conc) semaglutide 2 mg/dose (8 mg/3 mL) 2 mg (0.75 mL) subcut WK 30 days 11/30/21 04/29/22 Rx subcutaneous pen injector #3 mL aspirin 81 mg chewable tablet 81 mg PO DAILY 04/29/22 04/29/22 History insulin lispro 100 unit/mL 18 unit subcut BID 04/29/22 04/29/22 History subcutaneous pen (Humalog KwikPen (U-100) Insulin) insulin lispro 100 unit/mL 20 unit subcut QAM 04/29/22 04/29/22 History subcutaneous pen (Humalog KwikPen (U-100) Insulin) lisinopril 20 1 tab PO DAILY 04/29/22 04/29/22 History mg-hydrochlorothiazide 12.5 mg tablet vitamin E 268 mg (400 unit) capsule 268 mg PO DAILY 04/29/22 04/29/22 History Past Med/Surg History Medical History (Updated 04/30/22 @ 00:53 by Dania Ambrocio MD) CAD (coronary artery disease) Diabetes mellitus Diabetic peripheral neuropathy Hyperlipidemia Hypertension PAD (peripheral artery disease) Vitamin B12 deficiency Vitamin D deficiency Family History (Updated 04/30/22 @ 00:46 by Dania Ambrocio MD) Other Family history non-contributory Social History Smoking Status: Former smoker Tobacco Type: Cigarettes Second Hand Exposure: No; Do You Dip or Chew Tobacco: Yes; Tobacco Cessation Education Requested by Patient: No Hx Alcohol Use: No Hx Substance Use: No Preferred Language: [place] Clinical Data Specialist Required: No Beliefs That Will Affect Care: None Current Living Situation: Family Other Information That Helps Us Care for You: No Feels Safe at Home: Yes Safety Concerns: Feels Safe At This Time Assistive Devices: None Review of Systems Review of Systems: All systems reviewed & are unremarkable except as noted in HPI & below Physical Exam Constitutional: WD/WN, vitals as above Eyes: PERRL, conjunctivae normal, anicteric sclerae ENMT: external ear and nose normal, oropharynx normal Neck: trachea midline, no thyromegaly Respiratory: normal respiratory effort, lungs clear to auscultation Cardiovascular: RRR, no murmur, no edema Chest (Breasts): Chest: normal inspection of chest Gastrointestinal (Abdomen): normal bowel sounds, soft, nontender, no hepatosplenomegaly Musculoskeletal: Extremities: extremities normal to inspection; no cyanosis and no clubbing Skin: no rashes, warm and dry Neurologic: moves all extremities and awake; no focal motor deficits Psychiatric: A+Ox3, euthymic affect Lymphatic: no lymphedema Results & Data Results & Data Vital Signs (Past 12 Hours) Vital Signs Temp Pulse Resp BP Pulse Ox O2 Del Method 04/29/22 13:00 100 H 16 94 04/29/22 13:00 125/43 L 04/29/22 12:54 109 H 15 97 04/29/22 12:30 94 H 16 04/29/22 12:30 100/61 04/29/22 12:24 107/59 L 04/29/22 12:24 96 H 15 04/29/22 12:23 94 H 16 04/29/22 12:00 100 H 15 98 04/29/22 11:55 118 H 17 04/29/22 11:39 93 H 14 04/29/22 11:39 124/56 L 04/29/22 11:38 124 H 16 04/29/22 11:38 111/60 04/29/22 11:37 95 H 15 04/29/22 12:25 95 H 04/29/22 11:35 15 95 Room Air 04/29/22 11:35 36.5 C 15 124/56 L 95 Room Air Laboratory Results CBC, CMP, troponin, prolactin, TSH all reviewed Diagnostic Findings CT head, CT angiogram head and neck, and chest x-ray all reviewed ECG Additional Comments: ECG with normal sinus rhythm, nonspecific ST and T wave changes Code Status & VTE Plan Code Status DNR/DNI as discussed with patient VTE Prophylaxis Plan VTE Prophylaxis will be ordered: Yes PG Care Time/CCT Total # of Minutes Spent Total Time Spent with Patient: Total time spent is greater than 50% in coordination of care (as documented) at patient's floor/unit and/or counseling patient: Coding Level of Care Code 33747 INT INP/OBS CARE 3/75MIN Diagnoses Syncope R55 Diarrhea R19.7 Hypomagnesemia E83.42 Hypertension I10 Hypertension type: essential hypertension Diabetes mellitus E11.69; Z79.4 Diabetes mellitus complication status: with other specified complication 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: with mcfp use Diabetes mellitus type: type 2 Hyperlipidemia E78.2 Hyperlipidemia type: mixed hyperlipidemia Diabetic peripheral neuropathy E11.42 Vitamin D deficiency E55.9 Vitamin B12 deficiency E53.8 (4) Hypertension Hypertension type: essential hypertension Qualified Code(s): I10 - Essential (primary) hypertension (5) Diabetes mellitus Diabetes mellitus complication status: with other specified complication Diabetes mellitus mcfp insulin use: with rat exterminator use Diabetes mellitus type: type 2 Qualified Code(s): E11.69 - Type 2 diabetes mellitus with other specified complication; 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
[2022-04-29 15:47] LABS: Influenza A virus by PCR Negative (Neg); Influenza B virus by PCR Negative (Neg); RSV by PCR Negative (Neg); SARS CoV2 RNA(COVID-19) Ceph NEGATIVE (Negative)
[2022-04-29 16:43] LABS: Amphetamines+Metham, Urine Neg (Neg); Barbiturates, Urine Neg (Neg); Benzodiazepine, Urine Neg (Neg); Cocaine, Urine Neg (Neg); MDMA (Ecstacy), Urine Neg (Neg); Methadone, Urine Neg (Neg); Opiate, Urine Neg (Neg); Phencyclidine, Urine Neg (Neg)
[2022-04-29] MEDS ORDERED: ONDANSETRON INJ 2 MG/ML 2 ML VIAL IV PRN (16:48)
[2022-04-29] MEDS ORDERED: GLUCOSE 40% GEL 15 GM TUBE PO PRN (16:48)
[2022-04-29] MEDS ORDERED: ACETAMINOPHEN 325 MG TAB PO PRN (16:48)
[2022-04-29] MEDS ORDERED: GLUCAGON FOR INJ 1 MG VIAL SQ PRN (16:48)
[2022-04-29] MEDS ORDERED: DEXTROSE 50% 50 ML SYRINGE IV PRN (16:48)
[2022-04-29] MEDS ORDERED: GLUCOSE 10 TAB/TUBE PO PRN (16:48)
[2022-04-29] MEDS: CARBOHYDRATES FOR HYPOGLYCEMIA PO PRN ×3 (16:52→21:16)
[2022-04-29] MEDS ORDERED: INFLUENZA VACCINE HIGH DOSE PF 65+ 0.7 ML SYR IM ONE (17:11)
[2022-04-29] MEDS: INSULIN ASPART PER UNIT CHARGE SC SCH ×2 (18:19→21:23)
[2022-04-29] MEDS: ENOXAPARIN INJ 40 MG/0.4 ML SYR SQ SCH (20:19)
[2022-04-30] MEDS: SODIUM CHLORIDE 0.9% 1000ML 1,000 ML IV SCH (03:35)
[2022-04-30 06:30] LABS: Basophils # (auto) 0.05 K/uL (0-0.2); Basophils % (auto) 0.4 %; Eosinophils # (auto) 2.78 K/uL (0-0.50); Eosinophils % (auto) 20.2 %; Hematocrit (blood only) 36.1 % (42.0-52.0); Hemoglobin 12.4 g/dl (14.0-18.0); Immature Granulocytes # (auto) 0.05 K/uL (0.01-0.20); Immature Granulocytes % (auto) 0.4 %; Lymphocytes # (auto) 2.89 K/uL (1.2-3.4); Mean Corpuscular Hemoglobin 30.9 pg (25.0-34.0); Mean Corpuscular Hgb Conc 34.3 g/dL (32.0-36.0); Mean Platelet Volume 11.4 fL (9.4-12.4); Monocytes # (auto) 0.82 K/uL (0.11-0.59); Neutrophils # (auto) 7.17 K/uL (1.40-6.50); Platelet Count 225 K/uL (130-400); RDW Coefficient of Variation 13.2 % (11.5-14.5); RDW Standard Deviation 43.7 fL (36.4-46.3); Red Blood Count 4.01 M/uL (4.70-6.10); White Blood Count 13.76 K/ul (4.8-10.8)
[2022-04-30 06:37] LABS: Albumin Globulin Ratio 1.2 (0.9-2); Albumin Level 2.9 gm/dl (3.4-5.0); BUN Creatinine Ratio 17.4 (10-20); Bilirubin,Total 0.3 mg/dl (0.2-1.0); Calcium 8.2 mg/dl (8.5-10.1); Creatinine Clr Calc Pharmacy 63.6 ml/min; Est GFR (African American) 74.3 ml/min; Est GFR (Non-African American) 64.1 ml/min; Globulin 2.4 gm/dl (2.5-4.0); Magnesium 1.7 mg/dl (1.7-2.4); Potassium 4.2 mmol/L (3.5-5.1); Total Protein 5.3 gm/dl (6.0-8.3)
[2022-04-30] MEDS: INSULIN ASPART PER UNIT CHARGE SC SCH ×4 (07:00→21:27)
[2022-04-30] MEDS: CHOLECALCIFEROL 5,000 UNITS 125 MCG TAB PO SCH (08:37)
[2022-04-30] MEDS: CYANOCOBALAMIN (B-12) 500 MCG TABLET PO SCH (08:37)
[2022-04-30] MEDS: ASPIRIN 81 MG ECTAB PO SCH (08:38)
[2022-04-30] MEDS ORDERED: PRAVASTATIN SOD 20 MG TAB PO SCH (09:00)
[2022-04-30] MEDS ORDERED: LISINOPRIL/HCTZ 20/12.5MG 1 TAB TAB PO SCH (09:00)
[2022-04-30] MEDS ORDERED: LANTUS PER UNIT CHARGE SQ SCH (09:00)
--- NOTE | 2022-04-30 09:03 | XCELERA ---
[id number]
--- NOTE | 2022-04-30 10:36 | Neurology Consultation ---
Date of Consultation April 30, 2022 Assessment & Plan (1) Syncope: Plan 71-year-old male with apparent first ever syncopal episode. I understand the episode was a bit prolonged. However, patient has never had a previous episode, no signs or symptoms here suggestive of seizure disorder. This patient does have a normal prolactin level although the negative predictive value of a normal prolactin is perhaps only around 50%. Further, I see that his high-sensitivity troponin is increasing. I am uncertain if this would indicate a primary cardiovascular event in this patient or not. At this point, it would not be unreasonable to obtain additional testing including MRI of the brain, with and without contrast, seizure protocol. The MRI could of course also exclude an acute process such as stroke. Yet, the patient does not have any obvious focal deficits on his neurological examination at this time. An EEG would not be unreasonable as well. I will place orders for these tests. However, if the EEG cannot be completed as an inpatient, could be done in the outpatient setting. History of Present Illness Reason for Consultation: syncope, prolonged, possible seizure? Requesting Physician: Dania Ambrocio MD Attending Physician: Dawna Flores MD History of Present Illness The patient is a 71-year-old male who presented to the emergency department yesterday for further assessment of syncope. He was apparently sitting in his car, waiting in line at the [employer] when he experienced a loss of consciousness. The patient does not recall any particular warning signs such as dizziness, lightheadedness, vision changes, sweating, etc. He recalls awakening in the ambulance. He denies any headache, pain, or obvious signs of injury. No tongue bite or incontinence. He denies any recent specific illnesses although did endorse intermittent diarrhea for the previous week or so. History notable for insulin-dependent diabetes mellitus. He indicates that he did not eat breakfast the morning prior to the above event. EMS had apparently reported the patient glucose was normal as were his vital signs. They found him unresponsive and did not witness any seizure activity. The patient denies any previous episodes of loss of consciousness. No history of seizures. A CT of the head was negative for hemorrhage or acute process. A CT angiogram of the head and neck revealed atherosclerotic vascular change without aneurysm, dissection, or high-grade stenosis. The left vertebral artery is developmentally diminutive and terminates within the left PICA. I did independently review these images. An electrocardiogram has revealed a normal sinus rhythm. An echocardiogram revealed a hypokinetic apex, EF 50 to 55%, borderline enlargement of the left atria. No ASD. The patient has been intermittently, modestly, hypotensive during this hospitalization. A high-sensitivity troponin has been increasing. A prolactin was normal. This morning, the patient is without specific neurologic complaint, no headache, vision change, vertigo, change in speech, or focal weakness. Allergies Allergy/AdvReac Type Severity Reaction Status Date / Time No Known Allergies Allergy Verified 04/29/22 14:36 Home Medications Medication Instructions Recorded Confirmed Type mecobalamin (vitamin B12) 1,000 1,000 mcg sublingual DAILY 09/06/18 04/29/22 History mcg disintegrating tablet,sublingual cholecalciferol (vitamin D3) 125 10,000 units PO DAILY #30 tabs 09/21/18 04/29/22 History mcg (5,000 unit) tablet pravastatin 20 mg tablet 20 mg PO DAILY #90 tabs 09/21/18 04/29/22 History metformin 500 mg tablet,extended 1,000 mg PO BID 03/19/19 04/29/22 History release 24hr omega-3 acid ethyl esters 1 gram 1 cap PO BID 03/19/19 04/29/22 History capsule Toujeo SoloStar U-300 Insulin 300 55 unit (0.1833 mL) subcut DAILY 11/16/21 04/29/22 Rx unit/mL (1.5 mL) subcutaneous pen 90 days #18 mL (insulin glargine U-300 conc) semaglutide 2 mg/dose (8 mg/3 mL) 2 mg (0.75 mL) subcut WK 30 days 11/30/21 04/29/22 Rx subcutaneous pen injector #3 mL aspirin 81 mg chewable tablet 81 mg PO DAILY 04/29/22 04/29/22 History insulin lispro 100 unit/mL 18 unit subcut BID 04/29/22 04/29/22 History subcutaneous pen (Humalog KwikPen (U-100) Insulin) insulin lispro 100 unit/mL 20 unit subcut QAM 04/29/22 04/29/22 History subcutaneous pen (Humalog KwikPen (U-100) Insulin) lisinopril 20 1 tab PO DAILY 04/29/22 04/29/22 History mg-hydrochlorothiazide 12.5 mg tablet vitamin E 268 mg (400 unit) capsule 268 mg PO DAILY 04/29/22 04/29/22 History Patient History Medical History (Updated 04/30/22 @ 00:53 by Dania Ambrocio MD) CAD (coronary artery disease) Diabetes mellitus Diabetic peripheral neuropathy Hyperlipidemia Hypertension PAD (peripheral artery disease) Vitamin B12 deficiency Vitamin D deficiency Family History (Updated 04/30/22 @ 00:46 by Dania Ambrocio MD) Other Family history non-contributory Social History Smoking Status: Former smoker Tobacco Type: Cigarettes Second Hand Exposure: No; Do You Dip or Chew Tobacco: Yes; Tobacco Cessation Education Requested by Patient: No Hx Alcohol Use: No Hx Substance Use: No Preferred Language: Czech Associate Programmer Required: No Beliefs That Will Affect Care: None Current Living Situation: Family Other Information That Helps Us Care for You: No Feels Safe at Home: Yes Safety Concerns: Feels Safe At This Time Assistive Devices: None Review of Systems Constitutional: no fever and no chills Eyes: no blind spots and no diplopia Ear, Nose, Mouth, Throat: no ear pain and no tinnitus Respiratory: no cough and no dyspnea Cardiovascular: no chest pain and no palpitations Gastrointestinal: no nausea and no vomiting Genitourinary: no dysuria Musculoskeletal: no neck pain and no myalgia Integumentary: no rash and no lesions Neurologic: as per Subjective / HPI Psychiatric: no depression and no anxiety Hematologic / Lymphatic: no easy bleeding and no easy bruising Exam (Neuro) Constitutional: well developed and well nourished; no acute distress Eyes: normal visual posada by confrontation, PERRL, normal accommodation and EOM intact bilaterally; no fundoscopic abnormality, no nystagmus and no papilledema Cardiovascular: Vessels: normal carotid upstroke; no carotid bruit Neurologic: Oriented to:: Person, Place and Time Memory: Short Term Intact and Remote Intact Attention: Span Intact and Concentration Intact Language: Naming Objects and Repeating Phrases Speech Fluency: negative Dysarthria Speech Aphasia: negative Aphasia Fund of Knowledge: Current Events, Past History and Vocabulary Cranial Nerves: Normal II (Visual posada full to confrontation, visual acuity normal), III, IV, (Pupils equal round reactive to light and accommodation, eye movements normal), V (Facial sensation intact), VII (There is no facial droop or weakness), VIII (Hearing intact), IX, X (Palate elevates to midline), XI (Shoulder shrug intact) and XII (Tongue protrudes to midline) Motor Strength: Normal Lower Extremities and Normal Upper Extremities; negative Pronator Drift Motor Tone: Normal Lower Extremities and Normal Upper Extremities Muscle Bulk/Involuntary Movements: No Involuntary Movements; negative Muscle Atrophy Sensation: Light Touch Intact, Pain/Temperature Intact, Vibration Intact and Proprioception Intact Coordination: Normal; negative Limited Balance, Dysdiadochokinesia, Finger-Nose Abnormal or Heel-Torres Abnormal Deep Tendon Reflexes: Rt Triceps: 2+, Lt Triceps: 2+, Rt Biceps: 2+, Lt Biceps: 2+, Rt Brachioradialis: 2+, Lt Brachioradialis: 2+, Rt Patellar: 2+, Lt Patellar: 2+, Rt Ankle: 2+ and Lt Ankle: 2+ Special Tests: negative Babinski Present Gait: Normal Station and Gait Results & Data Vital Signs (Past 12 Hours) Vital Signs Temp Pulse Pulse Resp BP Pulse Ox O2 Del Method 04/30/22 08:00 Room Air 04/30/22 08:36 36.8 C 65 18 99/59 L 96 Room Air 04/30/22 03:49 36.9 C 71 18 93/54 L 98 Room Air 04/29/22 22:45 37.1 C 77 18 95/55 L 96 Room Air 04/29/22 23:33 68 Laboratory Results WBC 13.76, hemoglobin 12.4, hematocrit 36.1, platelet count 225, sodium 136, potassium 4.2, BUN 20, creatinine 1.15, glucose 84, magnesium 1.7, AST 14, ALT 10, troponin 1180.7, TSH 4.503, free T40.98, prolactin 7.[address] of the head, CT angiography of the head and neck as described in the history of present illness, I independently reviewed these images. Electrocardiogram reveals a normal sinus rhythm, 65 bpm An echocardiogram is as described above. PG Care Time/CCT Total # of Minutes Spent Total Time Spent with Patient: 60 minutes Coding Level of Care Code 32166 INT INP/OBS CARE 2/55MIN Diagnoses Syncope R55
--- NOTE | 2022-04-30 12:14 | Electroencephalogram ---
EEG Procedure Note Date of Service April 30, 2022 Start / End Times Start Time: 11:35 AM End Time: 11:55 AM Referring Physician Giles Dean MD History Syncope versus seizure Home Medication List Medication Instructions Recorded Confirmed Type mecobalamin (vitamin B12) 1,000 1,000 mcg sublingual DAILY 09/06/18 04/29/22 History mcg disintegrating tablet,sublingual cholecalciferol (vitamin D3) 125 10,000 units PO DAILY #30 tabs 09/21/18 04/29/22 History mcg (5,000 unit) tablet pravastatin 20 mg tablet 20 mg PO DAILY #90 tabs 09/21/18 04/29/22 History metformin 500 mg tablet,extended 1,000 mg PO BID 03/19/19 04/29/22 History release 24hr omega-3 acid ethyl esters 1 gram 1 cap PO BID 03/19/19 04/29/22 History capsule Toujeo SoloStar U-300 Insulin 300 55 unit (0.1833 mL) subcut DAILY 11/16/21 04/29/22 Rx unit/mL (1.5 mL) subcutaneous pen 90 days #18 mL (insulin glargine U-300 conc) semaglutide 2 mg/dose (8 mg/3 mL) 2 mg (0.75 mL) subcut WK 30 days 11/30/21 04/29/22 Rx subcutaneous pen injector #3 mL aspirin 81 mg chewable tablet 81 mg PO DAILY 04/29/22 04/29/22 History insulin lispro 100 unit/mL 18 unit subcut BID 04/29/22 04/29/22 History subcutaneous pen (Humalog KwikPen (U-100) Insulin) insulin lispro 100 unit/mL 20 unit subcut QAM 04/29/22 04/29/22 History subcutaneous pen (Humalog KwikPen (U-100) Insulin) lisinopril 20 1 tab PO DAILY 04/29/22 04/29/22 History mg-hydrochlorothiazide 12.5 mg tablet vitamin E 268 mg (400 unit) capsule 268 mg PO DAILY 04/29/22 04/29/22 History Inpatient Medication List Aspirin (Aspirin 81 Mg Ectab) 81 mg PO DAILY JESSENIA Stop: 05/30/22 08:59 Last Admin: 04/30/22 08:38 Dose: 81 mg Documented By: KALEE Cyanocobalamin (Cyanocobalamin (B-12) 500 Mcg Tablet) 1,000 mcg PO DAILY JESSENIA Stop: 05/30/22 08:59 Last Admin: 04/30/22 08:37 Dose: 1,000 mcg Documented By: KALEE Enoxaparin Sodium (Enoxaparin Inj 40 Mg/0.4 Ml Syr) 40 mg SQ Q24H JESSENIA Stop: 05/29/22 19:59 Last Admin: 04/29/22 20:19 Dose: 40 mg Documented By: [id number] Sodium Chloride (Nss 1000ml) 1,000 mls @ 70 mls/hr IV .[id number] JESSENIA Stop: 05/29/22 11:59 Last Admin: 04/30/22 03:35 Dose: 70 mls/hr Documented By: [id number] Infusion: 04/30/22 03:35 Dose: 70 mls/hr Documented By: [id number] Infusion: 04/30/22 00:25 Dose: 70 mls/hr Documented By: [id number] Infusion: 04/30/22 00:20 Dose: 75 mls/hr Documented By: [id number] Admin: 04/29/22 18:20 Dose: 125 mls/hr Documented By: Infusion: 04/29/22 18:20 Dose: 125 mls/hr Documented By: Admin: 04/29/22 12:09 Dose: 125 mls/hr Documented By: PAIGE Insulin Aspart (Insulin Aspart Per Unit) 0 units SC ACHS JESSENIA Stop: 05/29/22 16:47 Last Admin: 04/30/22 07:00 Dose: Not Given Documented By: Admin: 04/29/22 21:23 Dose: Not Given Documented By: [id number] Admin: 04/29/22 18:19 Dose: 7 units Documented By: KALEE Co-signed By: LEO Miscellaneous (Carbohydrates For Hypoglycemia ) 15 - 30 gm PO UD PRN PRN Reason: Hypoglycemia Protocol Stop: 05/29/22 16:47 Last Admin: 04/29/22 21:16 Dose: 30 gm Documented By: [id number] Admin: 04/29/22 20:36 Dose: 15 gm Documented By: [id number] Admin: 04/29/22 16:52 Dose: 15 gm Documented By: KALEE Pravastatin Sodium (Pravastatin Sod 20 Mg Tab) 20 mg PO DAILY JESSENIA Stop: 05/30/22 08:59 Last Admin: 04/30/22 08:37 Dose: 20 mg Documented By: KALEE Vitamin D (Cholecalciferol 5,000 Units 125 Mcg Tab) 10,000 units PO DAILY JESSENIA Stop: 05/30/22 08:59 Last Admin: 04/30/22 08:37 Dose: 10,000 units Documented By: KALEE Discontinued Medications Magnesium Sulfate/Dextrose (Magnesium Sulfate / D5w) 1 gm in 100 mls @ 100 mls/hr IV Q1H JESSENIA Stop: 04/29/22 14:51 Last Infusion: 04/29/22 15:59 Dose: 0 mls/hr Documented By: Admin: 04/29/22 14:38 Dose: 100 mls/hr Documented By: Infusion: 04/29/22 13:59 Dose: 0 mls/hr Documented By: Admin: 04/29/22 12:57 Dose: 100 mls/hr Documented By: PAIGE Ioversol (Optiray 320 500ml) 112 ml IV ONCE ONE Stop: 04/29/22 12:57 Last Admin: 04/29/22 12:57 Dose: 112 ml Documented By: LINDA Description This is a 21 electrode EEG with a single channel dedicated to limited EKG. The electrodes were placed in accordance with the International 10-20 system. There is a posterior dominant rhythm of 10 Hz which is symmetrically distributed and attenuates with eye opening. There is a normal anterior to posterior organization. Photic stimulation is unremarkable. Hyperventilation is not performed. There is a symmetric frontal beta rhythm. There is no focal slowing. There are some attenuation of the posterior dominant rhythm in the latter part of the study with the emergence of generalized polymorphic theta activity, there are a few vertex waves. There are no epileptiform abnormalities. Interpretation Normal-appearing awake/sleepy EEG. A normal EEG does not completely exclude a diagnosis of epilepsy. Further clinical correlation may be needed. [facility] EEG Procedure Codes Indication for Procedure (1) Syncope: (2) LOC (loss of consciousness): Neurology Neurology: [id number] EEG include record awake & sleepy
--- NOTE | 2022-04-30 13:48 | Hospitalist Progress Note ---
Date of Service April 30, 2022 Assessment & Plan (1) Syncope: Plan: Patient presents with mostly unwitnessed syncope for a prolonged amount of time approximately 10 minutes while sitting in his parked car Etiology is uncertain No orthostatic blood pressure changes CT head and CT angiogram head and neck did not show any acute pathology EEG did not suggest seizure, MRI brain has been ordered, result pending. Stroke is a possibility given elevated trop without suggestion of ACS 2 D ECHO did not show any structural heart abnormalities He may need 30 dy event monitor to r/o arrhythmias Appreciate cardiology, neurology recs (2) Diarrhea: Plan: With intermittent diarrhea over the last 2 weeks-has 3-4 episodes of nonbloody diarrhea every few days Did have a small drop of blood into the toilet with a bowel movement today but otherwise no bleeding, no melena No abdominal pains. No recent antibiotic use Stool PCR here is negative No changes in medications Monitor (3) Hypomagnesemia: Plan: Magnesium noted to be 1.4 on arrival. Likely secondary to HCTZ use as well as recent intermittent diarrhea and GI losses Was given 2 g of IV magnesium sulfate in the ER Follow magnesium level in the morning (4) Hypertension: Plan: Blood pressures are controlled Holding home lisinopril/HCTZ in case hypotension contributed to his syncope HCTZ also likely causing hypomagnesemia Follow blood pressures (5) Diabetes mellitus: Plan: Glucose is controlled, most recent hemoglobin A1c 6.9% Continue basal and bolus insulin Hold home Ozempic and metformin Glucose checks and diabetic diet (6) Hyperlipidemia: Plan: Continue pravastatin (7) Diabetic peripheral neuropathy: Plan: Follows with endocrinology (8) Vitamin D deficiency: Plan: Continue home vitamin D supplementation Most recent vitamin D level was normal (9) Vitamin B12 deficiency: Plan: Continue home B12 supplement Plan DVT prophylaxis-Lovenox SQ, SCDs Disposition-admit to PCU DNR/DNI as per discussion with patient Admission and Anticipated Discharge Date Admission Date: April 29, 2022 Subjective patient seen and examined, no new complaints Review of Systems Review of Systems: All systems reviewed are negative, apart from the ones contained in the history. Physical Exam Physical Exam: The patient is awake, alert and oriented 3, well developed and well nourished, normocephalic and atraumatic, lying in bed and in no acute distress. HEENT--PERRL, EOMI, mucous membranes and oropharynx mildly dry Neck--supple. No JVD. No bruits. Thyroid normal, trachea midline, no adenopathy. Heart--normal S1 and S2. No murmurs, rubs or gallops. Lungs--clear bilaterally, no respiratory distress, no accessory muscle use. Abdomen--normal bowel sounds and soft. Mild epigastric and left sided abdominal pain Extremities--no cyanosis or clubbing. No edema. Dermatologic--normal skin turgor, normal color, no abnormal lymph nodes, no rash. Neurologic--cranial nerves II through XII grossly intact. Rheumatologic--normal range of motion. Psychiatric--normal affect. Results & Data Results & Data Vital Signs (Past 12 Hours) Vital Signs Temp Pulse Resp BP Pulse Ox O2 Del Method 04/30/22 12:19 98.4 F 65 18 111/66 96 Room Air 04/30/22 08:00 Room Air 04/30/22 08:36 98.2 F 65 18 99/59 L 96 Room Air 04/30/22 03:49 98.4 F 71 18 93/54 L 98 Room Air PG Care Time/CCT Total # of Minutes Spent Total Time Spent with Patient: Total time spent is greater than 50% in coordination of care (as documented) at patient's floor/unit and/or counseling patient: Coding Level of Care Code 43317 SUB INP/OBS CARE 2/35MIN Diagnoses Syncope R55 Diarrhea R19.7 Hypomagnesemia E83.42 Hypertension I10 Hypertension type: essential hypertension Diabetes mellitus E11.69; Z79.4 Diabetes mellitus type: type 2 Diabetes mellitus termite exterminator insulin use: with termite exterminator use Diabetes mellitus complication status: with other specified complication Hyperlipidemia E78.2 Hyperlipidemia type: mixed hyperlipidemia Diabetic peripheral neuropathy E11.42 Vitamin D deficiency E55.9 Vitamin B12 deficiency E53.8 Time Spent (min) 35 (4) Hypertension Hypertension type: essential hypertension Qualified Code(s): I10 - Essential (primary) hypertension (5) Diabetes mellitus Diabetes mellitus type: type 2 Diabetes mellitus termite exterminator insulin use: with termite exterminator use Diabetes mellitus complication status: with other specified complication Qualified Code(s): E11.69 - Type 2 diabetes mellitus with other specified complication; Z79.4 - moth exterminator (current) use of insulin (6) Hyperlipidemia Hyperlipidemia type: mixed hyperlipidemia Qualified Code(s): E78.2 - Mixed hyperlipidemia
[2022-04-30] MEDS ORDERED: GADOBUTROL 65ML VIAL IV ONE (13:58)
[2022-04-30] MEDS: LANTUS PER UNIT CHARGE SQ SCH (14:33)
--- NOTE | 2022-04-30 15:17 | Pre Anesthesia Assessment ---
Date of Service April 30, 2022 Pre Sedation Assessment Vital Signs Temp Pulse Pulse Resp BP Pulse Ox O2 Del Method 04/30/22 12:19 36.9 C 65 18 111/66 96 Room Air 04/30/22 08:00 Room Air 04/30/22 08:36 36.8 C 65 18 99/59 L 96 Room Air 04/30/22 03:49 36.9 C 71 18 93/54 L 98 Room Air 04/29/22 22:45 37.1 C 77 18 95/55 L 96 Room Air 04/29/22 23:33 68 04/29/22 19:45 Room Air 04/29/22 19:34 36.9 C 98 H 18 112/67 97 Room Air 04/29/22 16:52 Room Air 04/29/22 16:52 37 C 86 16 137/66 98 Room Air Cardiovascular RRR, no murmur, no edema Respiratory normal respiratory effort, lungs clear to auscultation Pre-Sedation Airway Assessment Smoking Status: Former smoker Mallampati Class: III ASA: ASA3 NPO Status Date of Last Intake of Fluids: 04/30/22 Time of Last Intake of Fluids: 07:00 Last Oral Intake of Fluids Comment: sips with meds Date of Last Intake of Solid Food: 04/29/22 Time of Last Intake of Solid Foods: 20:00 Procedure Planning Contraindications for Sedation: none Current Medications Reviewed: Yes Notes The planned sedation has been discussed with the patient. Informed Consent was obtained. I have identified the patient, determined the appropriateness of sedation and have assessed the patient immediately prior to the procedure. All medicine(s) and interventions are by my order.
--- NOTE | 2022-04-30 15:20 | Cardiology Consultation ---
Date of Consultation April 30, 2022 Assessment & Plan (1) Non-ST elevation (NSTEMI) myocardial infarction: (2) Syncope: (3) Hypertension: (4) Hyperlipidemia: Plan ASSESSMENT/PLAN: 1. NSTEMI: He did not present with acute coronary syndrome however his troponin levels continue to elevate and has wall motion abnormalities on echo. Possible that he became ischemic, and experienced an ischemic arrhythmia causing his syncope. On aspirin. Recommend cardiac catheterization. Risks and benefits were discussed with him in detail. He was made aware that CT surgery is not available at this facility. He is agreeable to proceed. 2. Syncope: Etiology not clear. Neurology has seen him and no obvious neurologic event. EEG and MRI unremarkable. Telemetry demonstrated nonsustained ventricular tachycardia but no significant pauses or high-grade block. Recommended that he avoid driving. If no identifiable cause for his syncope is found, please contact [facility]. If cath is unremarkable, would consider loop recorder versus outpatient monitor. 3. Hypertension: Blood pressure has been mostly normotensive or mildly hypotensive. No changes made at this time. 4. Dyslipidemia: Given atherosclerosis noted on CTA imaging, would recommend high intensity statin therapy for goal LDL <70. 5. Disposition: Cardiac catheterization pending. Patient care communicated with primary hospitalist, Dr. Flores. Dr. Elena will be covering for the next week, including this weekend. Patient will be signed out to him. Please call on-call skilled nursing facility counselor with any questions or concerns. Highly complex medical issues. Thank you for allowing me to participate in the care of your patient. Please call for any other questions or concerns. Sincerely, Satnam Russell M.D. History of Present Illness Reason for Consultation: Syncope Requesting Physician: Dr. Ambrocio Attending Physician: Dawna Flores MD History of Present Illness Mr. Carpenter is a very pleasant 71-year-old gentleman with a history significant for type 2 diabetes, diabetic peripheral neuropathy, hypertension, and dyslipidemia. He was admitted on 04/29/2022 with syncope. He was sitting in the semi driver seat of a car waiting for food at the [employer] [facility] when he lost consciousness. He does not recall any symptoms preceding this. The next thing he knew he was awake in the back of an ambulance. He denies any sort of postictal state. He denies urinary or stool incontinence. He denies any neurologic deficit. He feels back to his baseline. He denies chest pain, shortness of breath, prior syncope, palpitations, or hematuria. He has chronic intermittent diarrhea and noted occasional blood with bowel movements which has been thought to be due to hemorrhoids. He has chronic and stable left lower extremity edema following injury in the past. He has been seen by neurology with no focal deficit noted. He underwent EEG and MRI of the brain was pending. EEG reports normal-appearing awake/sleepy EEG. He does not exercise but states that he is active. He denies chest pain or shortness of breath with activity. During this hospital stay however he was noted to have initial troponin of 21 which increased to a most recent value of 1180. According to medical record, he has been diagnosed with CAD and peripheral arterial disease. When asked about this, he denies both diagnoses. Review of systems: As above. Review of systems otherwise negative/unremarkable. Family history: No known premature CAD. Social history: Chews tobacco products. Smoked as a teenager. No alcohol or drug abuse. . Has 1 daughter. Lives with his girlfriend. Retired from [employer]. His girlfriend and her sister were present at the bedside. His daughter presented to the bedside during consultation. Allergies Allergy/AdvReac Type Severity Reaction Status Date / Time No Known Allergies Allergy Verified 04/29/22 14:36 Home Medications Medication Instructions Recorded Confirmed Type mecobalamin (vitamin B12) 1,000 1,000 mcg sublingual DAILY 09/06/18 04/29/22 History mcg disintegrating tablet,sublingual cholecalciferol (vitamin D3) 125 10,000 units PO DAILY #30 tabs 09/21/18 04/29/22 History mcg (5,000 unit) tablet pravastatin 20 mg tablet 20 mg PO DAILY #90 tabs 09/21/18 04/29/22 History metformin 500 mg tablet,extended 1,000 mg PO BID 03/19/19 04/29/22 History release 24hr omega-3 acid ethyl esters 1 gram 1 cap PO BID 03/19/19 04/29/22 History capsule Toujeo SoloStar U-300 Insulin 300 55 unit (0.1833 mL) subcut DAILY 11/16/21 04/29/22 Rx unit/mL (1.5 mL) subcutaneous pen 90 days #18 mL (insulin glargine U-300 conc) semaglutide 2 mg/dose (8 mg/3 mL) 2 mg (0.75 mL) subcut WK 30 days 11/30/21 04/29/22 Rx subcutaneous pen injector #3 mL aspirin 81 mg chewable tablet 81 mg PO DAILY 04/29/22 04/29/22 History insulin lispro 100 unit/mL 18 unit subcut BID 04/29/22 04/29/22 History subcutaneous pen (Humalog KwikPen (U-100) Insulin) insulin lispro 100 unit/mL 20 unit subcut QAM 04/29/22 04/29/22 History subcutaneous pen (Humalog KwikPen (U-100) Insulin) lisinopril 20 1 tab PO DAILY 04/29/22 04/29/22 History mg-hydrochlorothiazide 12.5 mg tablet vitamin E 268 mg (400 unit) capsule 268 mg PO DAILY 04/29/22 04/29/22 History Patient History Medical History (Updated 04/30/22 @ 15:37 by Binu Russell MD) Diabetes mellitus Diabetic peripheral neuropathy Hyperlipidemia Hypertension PAD (peripheral artery disease) Vitamin B12 deficiency Vitamin D deficiency Family History (Updated 04/30/22 @ 00:46 by Dania Ambrocio MD) Other Family history non-contributory Social History Smoking Status: Former smoker Tobacco Type: Cigarettes Second Hand Exposure: No; Hx Alcohol Use: No Hx Substance Use: No Preferred Language: [place] Communication Ability: Effective Dramatic Arts Historian Required: No Beliefs That Will Affect Care: None Current Living Situation: Family Feels Safe at Home: Yes Assistive Devices: None Physical Exam Physical Exam: Gen.: No acute distress. Alert and oriented. HEENT: Anicteric sclera. Neck: No JVD. No bruits. Normal carotid upstrokes bilaterally. Cardiac: No ventricular heave. Regular. Normal S1-S2. No murmurs, rubs, or gallops. Pulmonary: Clear to auscultation bilaterally without wheezes, rales, or rhonchi. Abdomen: Soft, nontender, nondistended, with normoactive bowel sounds. No bruits noted. Extremities: 2+ radial pulses bilaterally. 2+ posterior tibialis pulses bilaterally. No significant edema or cyanosis. Psychiatric: Affect appears appropriate. Results & Data Vital Signs (Past 12 Hours) Vital Signs Temp Pulse Resp BP Pulse Ox O2 Del Method 04/30/22 12:19 36.9 C 65 18 111/66 96 Room Air 04/30/22 08:00 Room Air 04/30/22 08:36 36.8 C 65 18 99/59 L 96 Room Air 04/30/22 03:49 36.9 C 71 18 93/54 L 98 Room Air Laboratory Results Laboratory Results - last 24 hr 04/29/22 04/29/22 04/29/22 12:00 14:27 16:47 WBC RBC Hgb Hct MCV MCH MCHC RDW Std Deviation RDW Coeff of Mikayla Plt Count MPV Immature Gran % (Auto) Neut % (Auto) Lymph % (Auto) O'Brien % (Auto) Eos % (Auto) Baso % (Auto) Neut # (Auto) Lymph # (Auto) O'Brien # (Auto) Eos # (Auto) Baso # (Auto) Immature Gran # (Auto) Sodium Potassium Chloride Carbon Dioxide Anion Gap BUN Creatinine Est Cr Clr Drug Dosing Est GFR ( Amer) Est GFR (Non-Af Amer) BUN/Creatinine Ratio Glucose POC Glucose 64 L* Calcium Magnesium Total Bilirubin AST ALT Alkaline Phosphatase Troponin I High Sens Total Protein Albumin Globulin Albumin/Globulin Ratio Procalcitonin Prolactin Urine Opiates Screen Neg Ur Methadone, Qual Neg Urine Barbiturates Neg Ur Phencyclidine (PCP) Neg U Amphetamin/Meth Scrn Neg MDMA (Ecstasy) Screen Neg U Benzodiazepines Scrn Neg Ur Cocaine Metabolite Neg U Marijuana (THC) Screen Neg SARS-CoV-2 (PCR) NEGATIVE Influenza Type A (PCR) Negative Influenza Type B (PCR) Negative RSV (RT-PCR) Negative 04/29/22 04/29/22 04/29/22 16:51 17:07 17:42 WBC RBC Hgb Hct MCV MCH MCHC RDW Std Deviation RDW Coeff of Mikayla Plt Count MPV Immature Gran % (Auto) Neut % (Auto) Lymph % (Auto) O'Brien % (Auto) Eos % (Auto) Baso % (Auto) Neut # (Auto) Lymph # (Auto) O'Brien # (Auto) Eos # (Auto) Baso # (Auto) Immature Gran # (Auto) Sodium Potassium Chloride Carbon Dioxide Anion Gap BUN Creatinine Est Cr Clr Drug Dosing Est GFR ( Amer) Est GFR (Non-Af Amer) BUN/Creatinine Ratio Glucose POC Glucose 58 L* 74 Calcium Magnesium Total Bilirubin AST ALT Alkaline Phosphatase Troponin I High Sens Total Protein Albumin Globulin Albumin/Globulin Ratio Procalcitonin < 0.05 Prolactin Urine Opiates Screen Ur Methadone, Qual Urine Barbiturates Ur Phencyclidine (PCP) U Amphetamin/Meth Scrn MDMA (Ecstasy) Screen U Benzodiazepines Scrn Ur Cocaine Metabolite U Marijuana (THC) Screen SARS-CoV-2 (PCR) Influenza Type A (PCR) Influenza Type B (PCR) RSV (RT-PCR) 04/29/22 04/29/22 04/29/22 17:42 17:42 20:30 WBC RBC Hgb Hct MCV MCH MCHC RDW Std Deviation RDW Coeff of Mikayla Plt Count MPV Immature Gran % (Auto) Neut % (Auto) Lymph % (Auto) O'Brien % (Auto) Eos % (Auto) Baso % (Auto) Neut # (Auto) Lymph # (Auto) O'Brien # (Auto) Eos # (Auto) Baso # (Auto) Immature Gran # (Auto) Sodium Potassium Chloride Carbon Dioxide Anion Gap BUN Creatinine Est Cr Clr Drug Dosing Est GFR ( Amer) Est GFR (Non-Af Amer) BUN/Creatinine Ratio Glucose POC Glucose 64 L* Calcium Magnesium Total Bilirubin AST ALT Alkaline Phosphatase Troponin I High Sens 581.6 H* D Total Protein Albumin Globulin Albumin/Globulin Ratio Procalcitonin Prolactin 7.20 Urine Opiates Screen Ur Methadone, Qual Urine Barbiturates Ur Phencyclidine (PCP) U Amphetamin/Meth Scrn MDMA (Ecstasy) Screen U Benzodiazepines Scrn Ur Cocaine Metabolite U Marijuana (THC) Screen SARS-CoV-2 (PCR) Influenza Type A (PCR) Influenza Type B (PCR) RSV (RT-PCR) 04/29/22 04/29/22 04/29/22 20:31 21:04 21:36 WBC RBC Hgb Hct MCV MCH MCHC RDW Std Deviation RDW Coeff of Mikayla Plt Count MPV Immature Gran % (Auto) Neut % (Auto) Lymph % (Auto) O'Brien % (Auto) Eos % (Auto) Baso % (Auto) Neut # (Auto) Lymph # (Auto) O'Brien # (Auto) Eos # (Auto) Baso # (Auto) Immature Gran # (Auto) Sodium Potassium Chloride Carbon Dioxide Anion Gap BUN Creatinine Est Cr Clr Drug Dosing Est GFR ( Amer) Est GFR (Non-Af Amer) BUN/Creatinine Ratio Glucose POC Glucose 66 L* 67 L* 73 Calcium Magnesium Total Bilirubin AST ALT Alkaline Phosphatase Troponin I High Sens Total Protein Albumin Globulin Albumin/Globulin Ratio Procalcitonin Prolactin Urine Opiates Screen Ur Methadone, Qual Urine Barbiturates Ur Phencyclidine (PCP) U Amphetamin/Meth Scrn MDMA (Ecstasy) Screen U Benzodiazepines Scrn Ur Cocaine Metabolite U Marijuana (THC) Screen SARS-CoV-2 (PCR) Influenza Type A (PCR) Influenza Type B (PCR) RSV (RT-PCR) 04/29/22 04/30/22 04/30/22 22:53 05:28 05:32 WBC 13.76 H RBC 4.01 L Hgb 12.4 L Hct 36.1 L MCV 90.0 MCH 30.9 MCHC 34.3 RDW Std Deviation 43.7 RDW Coeff of Mikayla 13.2 Plt Count 225 MPV 11.4 Immature Gran % (Auto) 0.4 Neut % (Auto) 52.0 Lymph % (Auto) 21.0 O'Brien % (Auto) 6.0 Eos % (Auto) 20.2 Baso % (Auto) 0.4 Neut # (Auto) 7.17 H Lymph # (Auto) 2.89 O'Brien # (Auto) 0.82 H Eos # (Auto) 2.78 H Baso # (Auto) 0.05 Immature Gran # (Auto) 0.05 Sodium Potassium Chloride Carbon Dioxide Anion Gap BUN Creatinine Est Cr Clr Drug Dosing Est GFR ( Amer) Est GFR (Non-Af Amer) BUN/Creatinine Ratio Glucose POC Glucose 89 Calcium Magnesium Total Bilirubin AST ALT Alkaline Phosphatase Troponin I High Sens 1097.2 H* D Total Protein Albumin Globulin Albumin/Globulin Ratio Procalcitonin Prolactin Urine Opiates Screen Ur Methadone, Qual Urine Barbiturates Ur Phencyclidine (PCP) U Amphetamin/Meth Scrn MDMA (Ecstasy) Screen U Benzodiazepines Scrn Ur Cocaine Metabolite U Marijuana (THC) Screen SARS-CoV-2 (PCR) Influenza Type A (PCR) Influenza Type B (PCR) RSV (RT-PCR) 04/30/22 04/30/22 04/30/22 05:32 05:32 12:07 WBC RBC Hgb Hct MCV MCH MCHC RDW Std Deviation RDW Coeff of Mikayla Plt Count MPV Immature Gran % (Auto) Neut % (Auto) Lymph % (Auto) O'Brien % (Auto) Eos % (Auto) Baso % (Auto) Neut # (Auto) Lymph # (Auto) O'Brien # (Auto) Eos # (Auto) Baso # (Auto) Immature Gran # (Auto) Sodium 136 Potassium 4.2 Chloride 108 H Carbon Dioxide 24 Anion Gap 4 BUN 20 Creatinine 1.15 Est Cr Clr Drug Dosing 63.6 Est GFR ( Amer) 74.3 Est GFR (Non-Af Amer) 64.1 BUN/Creatinine Ratio 17.4 Glucose 84 POC Glucose 79 Calcium 8.2 L Magnesium 1.7 Total Bilirubin 0.3 AST 14 ALT 10 Alkaline Phosphatase 30 L Troponin I High Sens 1180.7 H* Total Protein 5.3 L Albumin 2.9 L Globulin 2.4 L Albumin/Globulin Ratio 1.2 Procalcitonin Prolactin Urine Opiates Screen Ur Methadone, Qual Urine Barbiturates Ur Phencyclidine (PCP) U Amphetamin/Meth Scrn MDMA (Ecstasy) Screen U Benzodiazepines Scrn Ur Cocaine Metabolite U Marijuana (THC) Screen SARS-CoV-2 (PCR) Influenza Type A (PCR) Influenza Type B (PCR) RSV (RT-PCR) Diagnostic Findings Telemetry personally reviewed: Sinus rhythm with a 9 beat run of ventricular tachycardia on 04/29/2022 at 2143. Labs reviewed and notable for mild leukocytosis, mild anemia, stable renal function, elevated high-sensitivity troponin. Echo 04/30/2022: Normal LV size. EF 50 to 55%. Hypokinetic apex. Moderate LVH. Sclerotic aortic valve. Normal RVSP. ECG personally reviewed 04/29/2022 at 11:35 AM: Sinus rhythm 93 bpm. Poor R wave progression, possible anterior infarct. ECG 04/30/2022 at 5:47 AM: Sinus rhythm 65 bpm. Brain MRI 04/30/2022: No acute intracranial findings. No intracranial mass or pathologic enhancement. Neck CTA 04/29/2022: Atherosclerotic vascular disease without aneurysm, dissection, high-grade stenosis or arterial occlusion. Head CT 04/29/2022: No acute intracranial abnormality. Chest x-ray 04/29/2022: No acute cardiopulmonary abnormality. History and physical report reviewed. EEG report reviewed as noted above in HPI. Medications Administered Current Inpatient Medications Acetaminophen (Acetaminophen 325 Mg Tab) 650 mg PO Q4H PRN PRN Reason: Pain or Fever Stop: 05/29/22 16:47 Aspirin (Aspirin 81 Mg Ectab) 81 mg PO DAILY [facility] Stop: 05/30/22 08:59 Last Admin: 04/30/22 08:38 Dose: 81 mg Cyanocobalamin (Cyanocobalamin (B-12) 500 Mcg Tablet) 1,000 mcg PO DAILY JESSENIA Stop: 05/30/22 08:59 Last Admin: 04/30/22 08:37 Dose: 1,000 mcg Dextrose (Dextrose 50% 50 Ml Syringe) 25 - 50 ml IV UD PRN; Protocol PRN Reason: Hypoglycemia Protocol Stop: 05/29/22 16:47 Enoxaparin Sodium (Enoxaparin Inj 40 Mg/0.4 Ml Syr) 40 mg SQ Q24H JESSENIA Stop: 05/29/22 19:59 Last Admin: 04/29/22 20:19 Dose: 40 mg Glucagon (Glucagon For Inj 1 Mg Vial) 1 mg SQ UD PRN; Protocol PRN Reason: Hypoglycemia Protocol Stop: 05/29/22 16:47 Glucose (Glucose 10 Tab/Tube) 4 - 8 tab PO UD PRN; Protocol PRN Reason: Hypoglycemia Treatment Stop: 05/29/22 16:47 Glucose (Glucose 40% Gel 15 Gm Tube) 15 - 30 gm PO UD PRN; Protocol PRN Reason: Hypoglycemia Protocol Stop: 05/29/22 16:47 Sodium Chloride (Nss 1000ml) 1,000 mls @ 70 mls/hr IV .[id number] [facility] Stop: 05/29/22 11:59 Last Admin: 04/30/22 03:35 Dose: 70 mls/hr Insulin Aspart (Insulin Aspart Per Unit) 0 units SC ACHS [facility] Stop: 05/29/22 16:47 Last Admin: 04/30/22 12:55 Dose: Not Given Insulin Glargine (Lantus Per Unit Charge) 20 units SQ DAILY [facility]; Protocol Stop: 05/30/22 09:59 Last Admin: 04/30/22 14:33 Dose: Not Given Miscellaneous (Carbohydrates For Hypoglycemia ) 15 - 30 gm PO UD PRN PRN Reason: Hypoglycemia Protocol Stop: 05/29/22 16:47 Last Admin: 04/29/22 21:16 Dose: 30 gm Ondansetron HCl (Ondansetron Inj 2 Mg/Ml 2 Ml Vial) 4 mg IV Q6H PRN PRN Reason: Nausea Stop: 05/29/22 16:47 Pravastatin Sodium (Pravastatin Sod 20 Mg Tab) 20 mg PO DAILY JESSENIA Stop: 05/30/22 08:59 Last Admin: 04/30/22 08:37 Dose: 20 mg Vitamin D (Cholecalciferol 5,000 Units 125 Mcg Tab) 10,000 units PO DAILY JESSENIA Stop: 05/30/22 08:59 Last Admin: 04/30/22 08:37 Dose: 10,000 units PG Care Time/CCT Total # of Minutes Spent Total Time Spent with Patient: Total time spent is greater than 50% in coordination of care (as documented) at patient's floor/unit and/or counseling patient: Coding Level of Care Code 03412 INT INP/OBS CARE 3/75MIN Diagnoses Non-ST elevation (NSTEMI) myocardial infarction I21.4 Syncope R55 Hypertension I10 Hypertension type: essential hypertension Hyperlipidemia E78.2 Hyperlipidemia type: mixed hyperlipidemia (3) Hypertension Hypertension type: essential hypertension Qualified Code(s): I10 - Essential (primary) hypertension (4) Hyperlipidemia Hyperlipidemia type: mixed hyperlipidemia Qualified Code(s): E78.2 - Mixed hyperlipidemia
--- NOTE | 2022-04-30 15:24 | Magnetic Resonance Report ---
MRI OF THE BRAIN WITHOUT AND WITH IV CONTRAST SEIZURE PROTOCOL CLINICAL HISTORY: syncope vs seizure COMPARISON STUDY: Head CT and CTA of the head April 29, 2022. TECHNIQUE: Utilizing a 1.5 Ashley magnet and dedicated coil, multiplanar, multiecho imaging of the br ain was performed pre and postcontrast administration. IV administration of 10 mL of [address] contra st was uneventful. Thin cut coronal T2 imaging was performed according to seizure protocol. FINDINGS: There are no foci of restricted diffusion to suggest acute infarct. No acute intracranial h emorrhage, midline shift or mass effect is present. Ventricular system is normal. Basal cisterns are patent. There are no extra-axial collections. Flow-voids for the major intracranial vessels are prese nt. Scattered white matter T2 hyperintense foci suggest mild small vessel disease. Calvarial signal i s normal. There is no intracranial mass or pathologic enhancement. No MR evidence for mesial temporal sclerosis. IMPRESSION: 1. No acute intracranial findings. 2. No intracranial mass or pathologic enhancement. ACT 112: Negative or not required by law. Electronically signed by: Tai Schmid M.D. 04/30/2022 3:22 PM
[2022-04-30] MEDS ORDERED: HEPARIN (PORCINE) 1000 UNIT/ML 10 ML (CATH LAB USE ONLY) ONE ×2 (15:49→17:36)
[2022-04-30] MEDS ORDERED: MIDAZOLAM HCL 1 MG/ML 2ML VIAL ONE (15:49)
[2022-04-30] MEDS ORDERED: fentaNYL citrate PF 100 MCG/2 ML VIAL ONE (15:50)
[2022-04-30] MEDS ORDERED: NITROGLYCERIN/D5W 100MCG/ML 20ML SYR ONE (15:50)
[2022-04-30] MEDS ORDERED: niCARdipine HCL INJ 2.5 MG/ML 10 ML AMP ONE (15:50)
--- NOTE | 2022-04-30 16:45 | Cardiac Catheterization ---
[facility] Data: Business Process Manager Cardiac Status Clinical evaluation leading to the procedure CAD Presenation: No Sxs, No angina (Syncope) Anginal Classification: No Symptoms Heart Failure: No Cardiogenic Shock within 24 Hours: No Cardiac Arrest within 24 Hours: No Imaging Studies Past 6 Months: Yes Stress Studies Past 6 Months: No Coronary Anatomy Dominant: Right Diagnostic Physicians Name: Binu Russell MD Status: Elective Closure Device Percutaneous Entry Location: Radial Closure Device: Radial Band Recommendations: Management Recommendatons Cardiac Cath Procedure Full Procedure Date April 30, 2022 Pre-Procedure Diagnosis Pre-Procedure Diagnosis: Non STEMI AUC Score AUC Score: 8 Post-Procedure Diagnosis Post-Procedure Diagnosis: Severe CAD Procedure(s) Performed Procedure(s) Performed: Coronary Angiography and Left Heart Cath Retail Support Manager Binu Russell MD Special Services Coordinator(s) [place] Estimated Blood Loss Estimated Blood Loss: < 25 ml Medication(s) Medication(s): Fentanyl, Heparin, Lidocaine 1%, Nicardipine and Versed Summary of Findings Procedures: 1. Coronary angiography 2. Left heart catheterization 3. Moderate sedation Indication: 71-year-old gentleman with type 2 diabetes, hypertension, and dyslipidemia who presented with syncope with elevated troponin levels and LAD wall motion abnormality noted on echo. Coronary angiography: 1. Left main: Large caliber vessel. Proximal 30%. 2. Left anterior descending: Large caliber vessel. Proximal LAD 30%. Early mid LAD 100%. Left to left collaterals that only partially fill distal LAD. D1 without significant CAD. 3. Circumflex: Mid circumflex 20 to 30%. High OM1 and OM 2 without significant CAD. 4. Right coronary artery: RCA is large and dominant. Luminal irregularities noted throughout. PDA and PL without significant CAD. Left heart catheterization: 1. Left ventriculography was not performed. 2. Mild aortic stenosis suggested. Peak to peak gradient across the aortic valve 10-15 mmHg. 3. LVEDP 17 mmHg. Moderate sedation: 1. Sedation start time: 4:06 PM 2. Sedation end time: 4:27 PM Impression: 1. Severe LAD CAD (early mid 100%). 2. Otherwise, mild nonobstructive CAD. 3. Left to left collaterals that partially fill distal LAD system. 4. Mild aortic stenosis. 5. Mildly elevated left-sided filling pressure. Plan: 1. Given patient's presentation with initially unremarkable high-sensitivity troponin that has continued to increase, with LAD wall motion abnormality, Dr. Arriola of interventional cardiology was asked to review images and consider PCI attempt of the LAD. 2. Risk factor modification. 3. High intensity statin therapy. Hemodynamics Rest Ao:: 110/56 Final Ao: 110/57 LV: 120/5/17 Recommendations Recommendations: Management Recommendatons Specimens Specimens: None Radiation Exposure (mGy) 896 mGy. Fluoro time 2.2 min. Contrast (mls) 35 ml Procedural Complication(s) None Disposition Remains in concrete laborer for interventional cardiology. I attest to the content of the Intraoperative Record and any orders documented therein. Any exceptions are noted below. [facility] Card Cath Procedure Codes Cardiac Catheterization Procedure 1: Cardiovascular Cath Procedures: 54225 Coronaries and LHC (+/-LV) Moderate Sedation Procedure 1: Sedation/Anesthesia: 76605 Mod Sedation by the same physician;Init15 Min Child Age 5 & Up Procedure 2: Sedation/Anesthesia: 43336 Mod Sedation by the same physician; Ea [id number] Minutes PG Care Time/CCT Total # of Minutes Spent Total Time Spent with Patient: Total time spent is greater than 50% in coordination of care (as documented) at patient's floor/unit and/or counseling patient:
[2022-04-30] MEDS ORDERED: CLOPIDOGREL BISULFATE 300 MG TAB ONE (17:59)
--- NOTE | 2022-04-30 18:24 | Post Anesthesia Assessment ---
Date of Service April 30, 2022 Post Sedation Assessment Vital Signs Temp Pulse Pulse Pulse Resp BP Pulse Ox 04/30/22 18:18 97.5 F L 61 18 94/47 L 98 04/30/22 15:45 60 20 130/81 98 04/30/22 12:19 98.4 F 65 18 111/66 96 04/30/22 08:00 04/30/22 08:36 98.2 F 65 18 99/59 L 96 04/30/22 03:49 98.4 F 71 18 93/54 L 98 04/29/22 22:45 98.8 F 77 18 95/55 L 96 04/29/22 23:33 68 04/29/22 19:45 04/29/22 19:34 98.4 F 98 H 18 112/67 97 O2 Del Method 04/30/22 18:18 Room Air 04/30/22 15:45 Room Air 04/30/22 12:19 Room Air 04/30/22 08:00 Room Air 04/30/22 08:36 Room Air 04/30/22 03:49 Room Air 04/29/22 22:45 Room Air 04/29/22 23:33 04/29/22 19:45 Room Air 04/29/22 19:34 Room Air Recovery Score Activity: Moves 4 extremities Respiration: Deep Breath/Cough Circulation: +/-20% PreAnes Value Consciousness: Fully Awake Oxygen Saturation: O2 needed for >90% Discharge Sedation Level of Care: Fast Track Phase II Post Sedation Plan On clinical assessment, the patient appears to have tolerated the sedation without complications. Patient is recovering as anticipated. Patient will continue to be monitored by nursing and may be discharged when sedation discharge criteria are met per below protocol. Upon Completions of procedure up to 15 minutes continue every 5 minute vital signs and the P.A.R. score; then discharge to a Phase I or Fast Track to Phase II per the following guidelines: * Discharge Patient to appropriate Phase II area if PAR is 8 or greater or return to pre- procedure baseline. The post - procedure orders will be as directed. * If PAR score is less than 8 or not return to pre-procedure baseline then patient will follow Phase I monitoring till PAR is reached for Phase II. The Phase I may be done in procedure room or may call to secure a Phase I area. * If naloxone or flumazenil are used for reversal, hold in Phase I for continued monitoring from when last reversal dose was given for a minimum of 60 minutes or longer pending the nurse and/or physician discretion of patient condition before discharge to Phase II. Please call the Sedation Physician to re-evaluate and complete post-note for discharge to Phase II area. Do NOT discharge from procedure sedation or Phase 1 until post- sedation evaluation note is complete by procedure /sedation MD Sedation Discharge Instructions to be given to the patient at discharge to home.
--- NOTE | 2022-04-30 18:35 | Cardiac Catheterization ---
[facility] Data: Sweat Band Separator Cardiac Status Clinical evaluation leading to the procedure CAD Presenation: Non STEMI Anginal Classification: CCS IV Diagnostic Physicians Name: Benjamin Arriola MD Closure Device Recommendations: PCI without planned CABG Cardiac Cath Procedure Full Procedure Date April 30, 2022 Pre-Procedure Diagnosis Pre-Procedure Diagnosis: Non STEMI AUC Score AUC Score: 8 Post-Procedure Diagnosis Post-Procedure Diagnosis: Severe CAD and Successful PCI Procedure(s) Performed Procedure(s) Performed: Coronary Angiography, Drug Eluting Stent and IVUS Nuclear Plant Instrument Technician Benjamin Arriola MD Professor Of Latin American Studies(s) [place] Estimated Blood Loss Estimated Blood Loss: < 25 ml Medication(s) Medication(s): Clopidogrel, Fentanyl, Heparin, Lidocaine 1%, Nicardipine and Versed Summary of Findings Indication: NSTEMI Access: 6 Fr right radial artery Catheters: EBU 3.5 guide Findings: For full details of patient's coronary angiography please see cath report dictated by Dr. Russell. Briefly, patient found to have an acute on chronic earlymid LAD occlusion. Decision to proceed with PCI. -- PCI -- Antithrombotic therapy: Heparin, clopidogrel Procedure: Left main cannulated with EBU 3.5 guide Pre-procedure flow FERNANDO 0 Eventually able to pass Long whisper wire across earlymid occlusion with the aid of OTW balloon for support Distal intraluminal position confirmed via injection through OTW balloon Mid LAD lesion predilated with 2.0 compliant balloon Homeland IVUS catheter passed across mid LAD disease. Pullback revealed diffuse, calcified disease extending back to takeoff of D1. No significant left main disease. Dilated lesion stented with 2.75 x 33 mm Xience drug-eluting stent Angiography post stenting revealed severe residual disease, question edge dissection at distal aspect of stent. Second YAZAN (2.25 x 12 mm Xience) placed to mid LAD overlapping distal aspect of initial stent Stents post-dilated with 3.5 noncompliant balloon Repeat IVUS showed well apposed stents with no apparent edge complications IC vasodilators administered for spasm Post procedure FERNANDO 3 flow, stents well expanded with mild residual stenosis and no apparent cardiac complications. Arterial Closure: TR band Summary: 1. Successful PCI of mid LAD acute on chronic occlusion with 2 overlapping drug- eluting stents (2.75 x 33, 2.25 x 12 Xience; postdilated with 3.5 NC). Recommendations: To PCU for continued monitoring Loaded with clopidogrel 600 mg in Sweat Band Separator Continue dual-antiplatelet therapy for at least 1 year Continue statin, and ASCVD risk factor modification Consult cardiac Rehab Hemodynamics Rest Ao:: 110/57/177 Final Ao: 92/54/80 LV: -- Recommendations Recommendations: PCI without planned CABG Specimens Specimens: None Radiation Exposure (mGy) 5922 Contrast (mls) 140 Anesthesia Moderate 0360-2600 Procedural Complication(s) None Disposition PCU I attest to the content of the Intraoperative Record and any orders documented therein. Any exceptions are noted below. [facility] Card Cath Procedure Codes Therapeutic Services & Ancillary Procedure 1: Cardiovascular Tx and Anc Procedures: 87230 IV Ultrasound (Coronary or Graft) Moderate Sedation Procedure 1: Sedation/Anesthesia: 38906 Mod Sedation by the same physician; Ea Additio [id number] Minutes Stenting Procedure 1: Cardiovascular Stent Procedures: 86788 Perc transluminal revascularization of chronic total occlusion, PG Care Time/CCT Total # of Minutes Spent Total Time Spent with Patient: Total time spent is greater than 50% in coordination of care (as documented) at patient's floor/unit and/or counseling patient:
[2022-04-30] MEDS: CARBOHYDRATES FOR HYPOGLYCEMIA PO PRN (18:45)
[2022-04-30] MEDS: ENOXAPARIN INJ 40 MG/0.4 ML SYR SQ SCH (20:18)
[2022-04-30] MEDS: METOPROLOL TARTRATE 25 MG TAB PO SCH (20:44)
[2022-04-30] MEDS ORDERED: ATORVASTATIN 40 MG TAB PO SCH (21:00)
--- NOTE | 2022-05-01 00:36 | Electrocardiogram Report ---
Test Reason : Blood Pressure : / mmHG Vent. Rate : 093 BPM Atrial Rate : 093 BPM P-R Int : 162 ms QRS Dur : 088 ms QT Int : 362 ms P-R-T Axes : 041 020 044 degrees QTc Int : 450 ms Poor data quality, interpretation may be adversely affected Normal sinus rhythm Low voltage QRS Cannot rule out Anterior infarct , age undetermined Abnormal ECG No previous ECGs available Confirmed by Binu Russell ([id number]) on 05/01/2022 12:35:44 AM Referred By: Confirmed By:Binu Russell
--- NOTE | 2022-05-01 02:08 | Electrocardiogram Report ---
Test Reason : Blood Pressure : / mmHG Vent. Rate : 065 BPM Atrial Rate : 065 BPM P-R Int : 172 ms QRS Dur : 090 ms QT Int : 382 ms P-R-T Axes : 038 016 058 degrees QTc Int : 397 ms Normal sinus rhythm Normal ECG When compared with ECG of 29-APR-2022 11:35, Minimal criteria for Anterior infarct are no longer Present QT has shortened Confirmed by Binu Russell ([id number]) on 05/01/2022 2:07:26 AM Referred By: REFERRED SELF Confirmed By:Binu Russell
[2022-05-01 07:34] LABS: Hematocrit (blood only) 40.2 % (42.0-52.0); Hemoglobin 13.7 g/dl (14.0-18.0); Mean Corpuscular Hemoglobin 30.9 pg (25.0-34.0); Mean Corpuscular Hgb Conc 34.1 g/dL (32.0-36.0); Mean Corpuscular Volume 90.5 fL (80.0-100.0); Platelet Count 231 K/uL (130-400); RDW Coefficient of Variation 13.1 % (11.5-14.5); RDW Standard Deviation 43.2 fL (36.4-46.3); Red Blood Count 4.44 M/uL (4.70-6.10); White Blood Count 9.66 K/ul (4.8-10.8)
[2022-05-01] MEDS: METOPROLOL TARTRATE 25 MG TAB PO SCH (08:03)
[2022-05-01] MEDS: CYANOCOBALAMIN (B-12) 500 MCG TABLET PO SCH (08:04)
[2022-05-01] MEDS: CHOLECALCIFEROL 5,000 UNITS 125 MCG TAB PO SCH (08:04)
[2022-05-01] MEDS: ASPIRIN 81 MG ECTAB PO SCH (08:04)
[2022-05-01 08:11] LABS: BUN Creatinine Ratio 14.4 (10-20); Calcium 8.4 mg/dl (8.5-10.1); Creatinine Clr Calc Pharmacy 61.8 ml/min; Est GFR (Non-African American) 62.2 ml/min; Potassium 4.6 mmol/L (3.5-5.1)
[2022-05-01] MEDS: LANTUS PER UNIT CHARGE SQ SCH (08:33)
[2022-05-01] MEDS: INSULIN ASPART PER UNIT CHARGE SC SCH ×2 (08:33→12:41)
[2022-05-01] MEDS ORDERED: CLOPIDOGREL BISULFATE 75 MG TAB PO SCH (09:00)
[2022-05-01] MEDS ORDERED: LANTUS PER UNIT CHARGE SQ SCH ×2 (09:00)
--- NOTE | 2022-05-01 13:06 | Discharge Summary ---
Date of Service May 01, 2022 Admission HPI Per Admitting Provider This patient is a 71-year-old male with a history of DM2, obesity, diabetic peripheral neuropathy, HTN, and hyperlipidemia who presents to the ER after passing out in his car for a prolonged length of time. The patient reports he has been feeling like his normal self and was in his car in a parked position waiting in line at the [employer] today, doing a word puzzle. He reports he has been having some intermittent diarrhea the last 2 weeks and did feel an urge to defecate just prior to passing out. He otherwise denies any lightheadedness, heart palpitations, chest pains, shortness of breath, nausea/vomiting, headache or visual changes, weakness or numbness other than his chronic intermittent hand and foot numbness from neuropathy. He reports the next thing he remembers is waking up in the back of an ambulance. The length of time estimated that he was passed out was at least 10 minutes as per witnesses at the scene that called EMS. As per my discussion with the ER physician, EMS reports his glucose was normal, his vital signs were normal and he had a pulse and was breathing on his own when they found him unresponsive. There was no definite witnessed seizure activity. He denies any previous history of syncope or seizures. He denies any prior history of CAD or PAD despite these being listed as diagnoses in his chart. He has never had any cardiac issues that he is aware of. He reports he used to be quite physically active playing softball and other sports but has not in many years. However, he can easily go up and down a flight of stairs without any chest pains or shortness of breath. He denies any recent fevers or chills, cough or cold symptoms. He has chronic left leg swelling but it is no worse than usual. No recent weight gain or loss. No abdominal pains. He denies any recent changes in his medications or new supplements. In the ER, he had a nonfocal neurologic exam, his ECG was fairly normal, his initial troponin was mildly elevated at 21, he had a leukocytosis of 17, BUN mildly elevated at 25, and magnesium was low at 1.4. His vital signs were normal. He will be admitted for work-up for syncope. Principal Diagnosis NSTEMI Discharge Exam The patient is awake, alert and oriented 3, well developed and well nourished, normocephalic and atraumatic, lying in bed and in no acute distress. HEENT--PERRL, EOMI, mucous membranes and oropharynx mildly dry Neck--supple. No JVD. No bruits. Thyroid normal, trachea midline, no adenopathy. Heart--normal S1 and S2. No murmurs, rubs or gallops. Lungs--clear bilaterally, no respiratory distress, no accessory muscle use. Abdomen--normal bowel sounds and soft. Mild epigastric and left sided abdominal pain Extremities--no cyanosis or clubbing. No edema. Dermatologic--normal skin turgor, normal color, no abnormal lymph nodes, no rash. Neurologic--cranial nerves II through XII grossly intact. Rheumatologic--normal range of motion. Psychiatric--normal affect. Discharge Data Allergies Allergy/AdvReac Type Severity Reaction Status Date / Time No Known Allergies Allergy Verified 04/29/22 14:36 Consultations 04/29/22 14:37 ED Decision to Admit Stat 04/29/22 15:56 Consult Neurology Routine 04/29/22 16:48 Consult Cardiology Routine Procedures Performed Operation Date: 04/30/22 18:00 Actual Procedures p Cineradiography w/Routine Exam - Binu Russell MD p Cath, Left with Cors and Vent - Binu Russell MD s IVUS Coronary Single Vessel - Beau Arriola MD p Drug Eluting Stent SGl Vessel - Beau Arriola MD Ordered Studies 04/29/22 12:00 CT angio head w con Stat CT angio neck with con Stat CT head/brain wo con Stat 04/30/22 10:37 MR brain seizure wo/w con Routine 04/30/22 15:54 CL Cath Imgs for PACS use only Routine 04/30/22 18:13 CL IVUS Coronary Single Vessel Routine Hospital Course (1) Non-ST elevation (NSTEMI) myocardial infarction: He is now s/p Successful PCI of mid LAD acute on chronic occlusion with 2 overlapping drug-eluting stents Will continue Plavix and Aspirin and statin (2) Syncope: Patient presents with mostly unwitnessed syncope for a prolonged amount of time approximately 10 minutes while sitting in his parked car Etiology is uncertain No orthostatic blood pressure changes CT head and CT angiogram head and neck did not show any acute pathology EEG did not suggest seizure, MRI brain was normal However, cardiac cath showed significant disease of mid LAD He is now s/p john x2 2 D ECHO did not show any structural heart abnormalities (3) Diarrhea: Resolved (4) Hypomagnesemia: Repleted (5) Hypertension: Blood pressures are controlled Holding home lisinopril/HCTZ in case hypotension contributed to his syncope HCTZ also likely causing hypomagnesemia Follow blood pressures (6) Diabetes mellitus: Glucose is controlled, most recent hemoglobin A1c 6.9% Continue basal and bolus insulin Hold home Ozempic and metformin Glucose checks and diabetic diet (7) Hyperlipidemia: Continue pravastatin (8) Diabetic peripheral neuropathy: Follows with endocrinology (9) Vitamin D deficiency: Continue home vitamin D supplementation Most recent vitamin D level was normal (10) Vitamin B12 deficiency: Continue home B12 supplement Plan d/c home, follow up with PCP and cardiology Total Time Total Time Spent Total Time Spent (In Minutes): 35 Discharge Plan Discharge Items Patient Disposition: Home - Self-Care Reason For Visit: SYNCOPE Discharge Diagnosis: NSTEMI Activity: Resume your previous activity Non-emergency contact: Primary Care Provider and Mass Communications Instructor Call non-emergency contact if: you have any medication questions and your symptoms worsen Follow-up/Referrals: Katiuska Quinn CRNP [Primary Care Provider] - Diet: Heart Healthy Addtl Attending Provider Instructions: Please make appointment to follow up with your rubber goods finisher as soon as possible Pending Studies at Discharge: No Stand-Alone Forms: My [facility] [employer], Smoking Cessation Medications and DC Order Prescriptions: New clopidogrel 75 mg Tablet 75 mg PO QAM 30 Days Qty: 30 0RF metoprolol tartrate 25 mg Tablet 25 mg PO BID 30 Days Qty: 60 0RF Continued Toujeo SoloStar U-300 Insulin 300 unit/mL (1.5 mL) insulin pen 55 unit SQ DAILY 90 Days Qty: 18 3RF mecobalamin (vitamin B12) 1,000 mcg tablet,disintegrating 1,000 mcg SL DAILY pravastatin 20 mg tablet 20 mg PO DAILY Qty: 90 cholecalciferol (vitamin D3) 5,000 unit tablet 10,000 units PO DAILY Qty: 30 metformin 500 mg tablet extended release 24hr 1,000 mg PO BID Patient Comments: PO Take 2 tablets BID; omega-3 acid ethyl esters 1 gram capsule 1 cap PO BID Patient Comments: 1 cap PO Take 2 capsules BID; semaglutide 2 mg/dose (8 mg/3 mL) pen injector 2 mg subcut WK 30 Days Qty: 3 11RF lisinopril-hydrochlorothiazide 20-12.5 mg tablet 1 tab PO DAILY aspirin 81 mg Tablet,Chewable 81 mg PO DAILY vitamin E 268 mg (400 unit) Capsule 268 mg PO DAILY insulin lispro [Humalog KwikPen Insulin] 100 unit/mL insulin pen 18 unit SUBCUT BID Rx Instructions: lunch & supper plus sliding scale insulin lispro [Humalog KwikPen Insulin] 100 unit/mL insulin pen 20 unit SQ QAM Discharge Orders: Discharge Order (Routine); Ordered 05/01/22 Ordered By: Dawna Flores Admission Data Admit Date/Time: 04/29/22 15:56 Attending Provider: Dawna Flores Admit Provider: Dania Ambrocio Primary Care Provider: Katiuska Quinn Other Providers: Felix Husain ; Dania Ambrocio ; Binu Russell Coding Level of Care Code 78971 INP/OBS DISCH >30 MIN Diagnoses Non-ST elevation (NSTEMI) myocardial infarction I21.4 Syncope R55 Diarrhea R19.7 Hypomagnesemia E83.42 Hypertension I10 Hypertension type: essential hypertension Diabetes mellitus E11.69; Z79.4 Diabetes mellitus type: type 2 Diabetes mellitus mcc insulin use: with mcc use Diabetes mellitus complication status: with other specified complication Hyperlipidemia E78.2 Hyperlipidemia type: mixed hyperlipidemia Diabetic peripheral neuropathy E11.42 Vitamin D deficiency E55.9 Vitamin B12 deficiency E53.8 Time Spent (min) 35
--- NOTE | 2022-05-02 07:48 | Electrocardiogram Report ---
Test Reason : Blood Pressure : / mmHG Vent. Rate : 064 BPM Atrial Rate : 064 BPM P-R Int : 188 ms QRS Dur : 090 ms QT Int : 388 ms P-R-T Axes : 012 025 065 degrees QTc Int : 400 ms Normal sinus rhythm Low voltage QRS Abnormal ECG When compared with ECG of 30-APR-2022 05:47, No significant change was found Confirmed by Benjamin Elena ([id number]) on 05/02/2022 7:48:26 AM Referred By: REFERRED SELF Confirmed By:Speedy Elena
== END 2022-05-01 14:44 | disposition home or self-care (01) | DRG 247 ==
LOC: ED 11:27 → 4W 15:56 → SUATTDRO 15:56 → 4W 16:17
DX: E11.51 Type 2 diabetes mellitus with diabetic peripheral angiopathy without gangrene; I10 Essential (primary) hypertension; R19.7 Diarrhea, unspecified; E53.8 Deficiency of other specified B group vitamins; I47.20 Ventricular tachycardia, unspecified; Z68.37 Body mass index [BMI] 37.0-37.9, adult; I95.9 Hypotension, unspecified; I25.10 Atherosclerotic heart disease of native coronary artery without angina pectoris; Z66 Do not resuscitate; R55 Syncope and collapse; Z79.84 Long term (current) use of oral hypoglycemic drugs; E83.42 Hypomagnesemia; E55.9 Vitamin D deficiency, unspecified; Z79.4 Long term (current) use of insulin; I21.4 Non-ST elevation (NSTEMI) myocardial infarction; Z87.891 Personal history of nicotine dependence; E66.9 Obesity, unspecified; E78.5 Hyperlipidemia, unspecified; E11.49 Type 2 diabetes mellitus with other diabetic neurological complication